=== PATIENT | male | born 1930 | race Caucasian/White ===

== ENCOUNTER → 2016-09-27 | Outpatient (CLI) | payer BC ==
[~2016-09-27] MED LIST: FINA5TAB PO; MELA1TAB3 PO; MULTCAP33 PO; SPIR25TA PO; TERA1CAP63 PO
[2016-09-27 11:04] LABS: BASO % 0.3 %; BASO ABS # 0.02 K/uL (0-0.2); COMPLETE YES; HEMATOCRIT 41.6 % (42-52); IG% 0.5 %; LYMPH % 14.6 %; LYMPH ABS # 0.96 K/uL (1.2-3.4); MEAN CELL VOLUME 90.8 fL (80-100); MEAN CORPUSCULAR HEMOGLOBIN 30.3 pg (25-34); MEAN CORPUSCULAR HGB CONC 33.4 g/dl (32-36); MEAN PLATELET VOLUME 9.1 fL (7.4-10.4); MONO % 11.4 %; NEUT % 70.2 %; PLATELET COUNT 253 K/uL (130-400); RED BLOOD COUNT 4.58 M/uL (4.7-6.1); WHITE BLOOD COUNT 6.59 K/uL (4.8-10.8)
[2016-09-27 11:13] LABS: ALT/SGPT 20 U/L (12-78)
[2016-09-27 11:18] LABS: ALKALINE PHOSPHATASE 61 U/L (45-117); AST/SGOT 12 U/L (15-37)
== END | disposition home or self-care (01) ==
LOC: C.LAB1850 09:52
PROVIDERS: ATTEND Internal Medicine Rheumatology
DX: E55.9 Vitamin D deficiency, unspecified (principal); R70.0 Elevated erythrocyte sedimentation rate; M65.88 Other synovitis and tenosynovitis, other site

== ENCOUNTER → 2016-12-06 | Outpatient (CLI) | payer BC ==
[2016-12-06 10:35] LABS: BASO % 0.5 %; BASO ABS # 0.03 K/uL (0-0.2); COMPLETE YES; EOS % 2.4 %; HEMATOCRIT 41.9 % (42-52); IG% 0.3 %; LYMPH % 13.5 %; LYMPH ABS # 0.89 K/uL (1.2-3.4); MEAN CELL VOLUME 92.9 fL (80-100); MEAN CORPUSCULAR HEMOGLOBIN 30.8 pg (25-34); MEAN CORPUSCULAR HGB CONC 33.2 g/dl (32-36); MEAN PLATELET VOLUME 9.2 fL (7.4-10.4); MONO % 8.5 %; NEUT % 74.8 %; PLATELET COUNT 251 K/uL (130-400); RED BLOOD COUNT 4.51 M/uL (4.7-6.1); WHITE BLOOD COUNT 6.61 K/uL (4.8-10.8)
== END | disposition home or self-care (01) ==
LOC: C.LAB1850 09:41
PROVIDERS: ATTEND Internal Medicine Rheumatology
DX: N40.1 Benign prostatic hyperplasia with lower urinary tract symptoms (principal); E55.9 Vitamin D deficiency, unspecified; M65.88 Other synovitis and tenosynovitis, other site

== ENCOUNTER → 2017-01-11 | Outpatient (CLI) | payer BC | END | disposition home or self-care (01) | LOC: C.LABFOXMH 08:55 | PROVIDERS: ATTEND Urology | DX: N40.1 Benign prostatic hyperplasia with lower urinary tract symptoms (principal) ==

== ENCOUNTER → 2017-03-15 | Outpatient (CLI) | payer BC ==
[2017-03-15 13:22] LABS: BASO % 0.3 %; BASO ABS # 0.02 K/uL (0-0.2); COMPLETE YES; EOS % 3.1 %; HEMATOCRIT 40.5 % (42-52); IG% 0.2 %; LYMPH % 12.3 %; LYMPH ABS # 0.72 K/uL (1.2-3.4); MEAN CELL VOLUME 92.5 fL (80-100); MEAN CORPUSCULAR HEMOGLOBIN 31.7 pg (25-34); MEAN CORPUSCULAR HGB CONC 34.3 g/dl (32-36); MEAN PLATELET VOLUME 9.6 fL (7.4-10.4); NEUT % 72.1 %; PLATELET COUNT 245 K/uL (130-400); RED BLOOD COUNT 4.38 M/uL (4.7-6.1); WHITE BLOOD COUNT 5.84 K/uL (4.8-10.8)
[2017-03-15 13:47] LABS: ALT/SGPT 17 U/L (12-78)
[2017-03-15 13:50] LABS: ALKALINE PHOSPHATASE 68 U/L (45-117); AST/SGOT 12 U/L (15-37)
== END | disposition home or self-care (01) ==
LOC: C.LAB1850 12:06
PROVIDERS: ATTEND Internal Medicine Rheumatology
DX: M15.4 Erosive (osteo)arthritis (principal); M65.88 Other synovitis and tenosynovitis, other site; Z79.899 Other long term (current) drug therapy

== ENCOUNTER → 2017-04-09 | Outpatient (CLI) | payer BC ==
[2017-04-09 12:58] LABS: ALT/SGPT 16 U/L (12-78); BLOOD UREA NITROGEN 16 mg/dl (7-18); BUN/CREATININE RATIO 14.4 (10-20); CALCIUM 8.4 mg/dl (8.5-10.1); CARBON DIOXIDE 25 mmol/L (21-32); CHLORIDE 107 mmol/L (98-107); CHOLESTEROL 122 mg/dl (0-200); GLUCOSE 76 mg/dl (70-99); POTASSIUM 4.2 mmol/L (3.5-5.1); SODIUM 139 mmol/L (136-145); TRIGLYCERIDES 58 mg/dl (0-150); VERY LOW DENSITY LIPOPROT CALC 12 mg/dl
[2017-04-09 13:01] LABS: ALKALINE PHOSPHATASE 63 U/L (45-117); AST/SGOT 11 U/L (15-37); CHOLESTEROL/HDL RATIO 2.7; HDL CHOLESTEROL 46 mg/dl; LDL CHOLESTEROL CALCULATED 64 mg/dl
== END | disposition home or self-care (01) ==
LOC: C.LABFOXMH 12:55
PROVIDERS: ATTEND Internal Medicine
DX: I10 Essential (primary) hypertension (principal); E78.00 Pure hypercholesterolemia, unspecified

== ENCOUNTER → 2017-07-03 | Outpatient (CLI) | payer BC ==
[~2017-07-03] MED LIST changes: +CELE1CAP30 PO; +CHOL20007 PO; +ESZO1TAB16 PO; +FLNIN/ NAE; +HYDR200T5 PO; +LEVA45AE INH; +LVQ750 PO; +MRP5; +OFLO0.3D4 OT; +PRAM0.5T13 PO; +PRENTAB26 PO; +SPIR25TA6 PO; +TRAM-10 PO
--- NOTE | 2017-07-03 12:53 | DIAGNOSTIC IMAGING REPORT ---
L-SPINE MIN 4 VIEWS ROUTINE CLINICAL HISTORY: 86 years-old Male presenting with low back pain, no history of trauma. TECHNIQUE: Frontal, bilateral oblique, lateral, and coned in lateral views of the lumbar spine were obtained. COMPARISON: CT from 2015. FINDINGS: Levocurvature of the lumbar spine centered at and L2-3. Otherwise lordosis is preserved. Severe multilevel degenerative changes with osteophytosis, disc height loss, and endplate sclerosis. Osseous neural foraminal narrowing suspected in the lower lumbar spine and multiple levels. Focal sclerosis in the anterior superior portion of the L2 vertebral body was not clearly present on prior CT and is indeterminate. No gross evidence of a compression deformity. Atherosclerosis. Numerous surgical clips project over the left lower quadrant. Total right hip arthroplasty. Suspected osteopenia. IMPRESSION: 1. Focal sclerosis in the anterior superior portion of the L2 vertebral body, indeterminate and somewhat suspicious for a blastic metastasis in the appropriate clinical setting. Alternatively, this could be degenerative related. This be better evaluated with contrast-enhanced MR. 2. Severe multilevel degenerative changes with osseous neural foraminal narrowing. 3. Suspected osteopenia. Electronically signed by: Yoshi Francois M.D. 07/03/2017 12:52 PM Dictated Date/Time: 07/03/2017 12:49 PM
== END | disposition home or self-care (01) ==
LOC: C.RAD 12:24
PROVIDERS: ATTEND Internal Medicine
DX: M47.896 Other spondylosis, lumbar region (principal); M48.061 Spinal stenosis, lumbar region without neurogenic claudication

== ENCOUNTER → 2017-07-04 | Outpatient (CLI) | payer BC ==
[~2017-07-04] MED LIST changes: -CELE1CAP30 PO; -CHOL20007 PO; -ESZO1TAB16 PO; -FLNIN/ NAE; -HYDR200T5 PO; -LEVA45AE INH; -LVQ750 PO; -MRP5; -OFLO0.3D4 OT; -PRAM0.5T13 PO; -PRENTAB26 PO; -SPIR25TA6 PO; -TRAM-10 PO
[2017-07-04 08:15] LABS: BLOOD UREA NITROGEN 18 mg/dl (7-18); BUN/CREATININE RATIO 15.4 (10-20); CALCIUM 8.5 mg/dl (8.5-10.1); CARBON DIOXIDE 27 mmol/L (21-32); CHLORIDE 109 mmol/L (98-107); CREATININE 1.19 mg/dl (0.60-1.40); GLUCOSE 85 mg/dl (70-99); SODIUM 141 mmol/L (136-145)
== END | disposition home or self-care (01) ==
LOC: C.LABFOXMH 07:50
PROVIDERS: ATTEND Internal Medicine
DX: I10 Essential (primary) hypertension (principal)

== ENCOUNTER → 2017-07-11 | Outpatient (CLI) | payer BC ==
[~2017-07-11] MED LIST changes: +CELE1CAP30 PO; +CHOL20007 PO; +ESZO1TAB16 PO; +FLNIN/ NAE; +HYDR200T5 PO; +LEVA45AE INH; +LVQ750 PO; +MRP5; +OFLO0.3D4 OT; +PRAM0.5T13 PO; +PRENTAB26 PO; +SPIR25TA6 PO; +TRAM-10 PO
[2017-07-11 15:31] LABS: HEMATOCRIT 40.3 % (42-52); HEMOGLOBIN 13.6 g/dL (14.0-18.0); MEAN CELL VOLUME 93.7 fL (80-100); MEAN CORPUSCULAR HEMOGLOBIN 31.6 pg (25-34); MEAN CORPUSCULAR HGB CONC 33.7 g/dl (32-36); MEAN PLATELET VOLUME 9.4 fL (7.4-10.4); PLATELET COUNT 281 K/uL (130-400); RED CELL DISTRIBUTION WIDTH SD 47.7 fL (36.4-46.3); WHITE BLOOD COUNT 7.19 K/uL (4.8-10.8)
[2017-07-11 15:39] LABS: INR 1.1 (0.9-1.1)
[2017-07-11 15:44] LABS: ALBUMIN 3.5 gm/dl (3.4-5.0); ALT/SGPT 27 U/L (12-78); BLOOD UREA NITROGEN 24 mg/dl (7-18); CALCIUM 8.4 mg/dl (8.5-10.1); CARBON DIOXIDE 24 mmol/L (21-32); CREATININE 1.28 mg/dl (0.60-1.40); GLUCOSE 167 mg/dl (70-99); POTASSIUM 4.5 mmol/L (3.5-5.1); SODIUM 138 mmol/L (136-145)
[2017-07-11 15:46] LABS: ALKALINE PHOSPHATASE 68 U/L (45-117); AST/SGOT 21 U/L (15-37); TOTAL PROTEIN 6.5 gm/dl (6.4-8.2)
== END | disposition home or self-care (01) ==
LOC: C.LABFOXMH 14:56
PROVIDERS: ATTEND Internal Medicine Hospice and Palliative Medicine
DX: M79.81 Nontraumatic hematoma of soft tissue (principal)

== ENCOUNTER → 2017-07-12 | Outpatient (CLI) | payer BC ==
[~2017-07-12] MED LIST changes: -CELE1CAP30 PO; -CHOL20007 PO; -ESZO1TAB16 PO; -FLNIN/ NAE; +GADAVIST IV PRN; -HYDR200T5 PO; -LEVA45AE INH; -LVQ750 PO; -MRP5; -OFLO0.3D4 OT; -PRAM0.5T13 PO; -PRENTAB26 PO; -SPIR25TA6 PO; -TRAM-10 PO
--- NOTE | 2017-07-12 11:44 | DIAGNOSTIC IMAGING REPORT ---
LUMBAR SPINE COMBINATION HISTORY: Pain BACK PAIN,SCLEROTIC LESION AT L2 TECHNIQUE: Multiplanar multisequence MRI of the lumbar spine was performed both before and after the intravenous administration of contrast. COMPARISON: Lumbar spine series 07/03/2017. Bone scan 05/08/2016. FINDINGS: For the purpose of the report the L5-S1 disc space will be located on axial image 23 of 26. Severe degenerative disc change throughout the entire lumbar region. No evidence for compression deformity. Age-related bone marrow in homogeneity. No significant bone marrow replacing process. The sclerosis present described at L2 appears to be a degenerative basis. No significant abnormal postcontrast enhancement. Instill note is made of a distention of the renal pelves bilaterally which appears to be chronic in this patient. L1-L2: Broad-based right central disc herniation. Moderate impact upon the right anterior aspect thecal sac. Mild osteophytic narrowing of the neuroforamina bilaterally. L2-L3: Moderate multifactorial narrowing of spinal canal. Broad-based disc herniation. Narrowing of the neuroforamina bilaterally considered moderate. L3-L4: Moderate to significant multifactorial spinal stenosis. Significant narrowing of the neuroforamina bilaterally. L4-L5: Severe multifactorial narrowing of spinal canal. Considerable hypertrophic change posterior elements and ligamentum flavum. Osteophytic narrowing of the neuroforamina bilaterally. L5-S1: Moderate multifactorial narrowing of the spinal canal. Mild osteophytic narrowing of the neuroforamina bilaterally. IMPRESSION: 1. Severe degenerative disc change throughout the entire lumbar region.. 2. Multilevel multifactorial narrowing of the spinal canal throughout all levels of the lumbar spine. 3. Moderate to rather significant narrowing of the neuroforamina bilaterally at virtually all levels. 4. No evidence for a metastatic process or abnormal postcontrast enhancement at L2 or at any additional level of the lumbar region. 5. The sclerosis of L2 previously described on routine imaging evaluation appears to relate to degenerative change The above report was generated using voice recognition software. It may contain grammatical, syntax or spelling errors. Electronically signed by: Paul Pinzon M.D. 07/12/2017 11:43 AM Dictated Date/Time: 07/12/2017 11:35 AM
== END | disposition home or self-care (01) ==
LOC: C.MRI 10:00
PROVIDERS: ATTEND Internal Medicine
DX: M54.5 Low back pain (principal); M89.9 Disorder of bone, unspecified; M51.36 Other intervertebral disc degeneration, lumbar region; M48.061 Spinal stenosis, lumbar region without neurogenic claudication

== ENCOUNTER → 2017-07-20 | Outpatient (CLI) | payer BC ==
[~2017-07-20] MED LIST changes: +CELE1CAP30 PO; +CHOL20007 PO; +ESZO1TAB16 PO; +FLNIN/ NAE; -GADAVIST IV PRN; +HYDR200T5 PO; +LEVA45AE INH; +LVQ750 PO; +MRP5; +OFLO0.3D4 OT; +PRAM0.5T13 PO; +PRENTAB26 PO; +SPIR25TA6 PO; +TRAM-10 PO
--- NOTE | 2017-07-20 13:41 | DIAGNOSTIC IMAGING REPORT ---
R HIP UNILATERAL 2 VIEWS HISTORY: 86 years-old Male PAIN S/P FALL TWO WEEKS AGO acute right hip pain status post recent fall COMPARISON: CT abdomen and pelvis 12/27/2014 TECHNIQUE: 2 views of the right hip FINDINGS: The bones appear mildly demineralized. Right hip arthroplasty noted in satisfactory alignment. No evidence of hardware complication, acute fracture or dislocation. No pelvic ring fracture identified. Probable phleboliths of the pelvis. Surgical clip projects over the right pelvis. Peripheral vascular disease. IMPRESSION: 1. Mildly demineralized appearance of the bones without acute fracture or dislocation. 2. Right hip arthroplasty noted without complication. 3. Peripheral vascular disease. The above report was generated using voice recognition software. It may contain grammatical, syntax or spelling errors. Electronically signed by: Valdez Huntley M.D. 07/20/2017 1:40 PM Dictated Date/Time: 07/20/2017 1:38 PM
== END | disposition home or self-care (01) ==
LOC: C.RAD 13:07
PROVIDERS: ATTEND Nurse Practitioner Family
DX: M25.551 Pain in right hip (principal); I73.9 Peripheral vascular disease, unspecified; W19.XXXA Unspecified fall, initial encounter; Z96.641 Presence of right artificial hip joint

== ENCOUNTER 2017-09-03 18:56 | Inpatient (IN) | payer BC, OTHER ==
[~2017-09-03] VITALS: Ht 172.7 cm; Wt 81.7 kg
[~2017-09-03 18:56] MED LIST changes: -CELE1CAP30 PO; -CHOL20007 PO; -ESZO1TAB16 PO; -FLNIN/ NAE; -HYDR200T5 PO; -LEVA45AE INH; -LVQ750 PO; -MRP5; -OFLO0.3D4 OT; -PRAM0.5T13 PO; -PRENTAB26 PO; -SPIR25TA6 PO; -TRAM-10 PO
[2017-09-03] MEDS ORDERED: SODIUM CHLORIDE 0.9% 250ML 250 ML IV STA (19:06)
[2017-09-03] MEDS ORDERED: SODIUM CHLORIDE 0.9% 1000ML 1,000 ML IV STA (19:06)
[2017-09-03] MEDS ORDERED: ALBUT/IPRATROP 3MG/0.5MG NEB 3 ML VIAL INH STA (19:06)
--- NOTE | 2017-09-03 19:15 | EMERGENCY ROOM VISIT NOTE ---
History Report prepared by Jessica: Alex Rojas Under the Supervision of: Dr. Wendy Perez M.D. First contact with patient: 18:58 Stated Complaint: WEAKNESS History of Present Illness The patient is an 86 year old male who presents to the Emergency Room with complaints of constant weakness over the past three days. The patient states he is from [facility]. He reports he later developed a non-productive cough and hip pain. The patient notes he has a history of a hip surgery, and Advil helped his hip pain. He states he did not know he had a fever, but he was febrile on arrival. He notes he did not eat all of his dinner because he had a full lunch. The patient states he did receive a flu shot this year. The patient reports he has a history of hypertension. He denies vomiting, diarrhea, a history of smoking, and a history of diabetes. Source of History: patient Onset: three days ago Position: other (global) Quality: other (weakness) Timing: constant Associated Symptoms: + fevers, + cough (non-productive), No vomiting, No diarrhea Note: Associated symptoms: hip pain that relieved with Advil, decreased appetite Review of Systems See HPI for pertinent positives & negatives. A total of 10 systems reviewed and were otherwise negative. Past Medical & Surgical Medical Problems: (1) Acute CHF (congestive heart failure) (2) Localized, primary osteoarthritis of the pelvic region and thigh Family History Patient reports no known family medical history. Social History Smoking Status: Never Smoker Drug Use: none Marital Status: Housing Status: other ([facility]) Occupation Status: retired Current/Historical Medications Scheduled Finasteride (Proscar), 5 MG PO QAM Hydroxychloroquine Sulfate (Plaquenil), 200 MG PO BIDM Melatonin-Pyridoxine (Melatonin), 3 MG PO HS Multiple Vitamins W/ Minerals (Preservision Areds), 1 CAP PO BID Multivit/Min/Iron/Fol Ac/Pren ( Vitamin), 1 TAB PO DAILY Pramipexole Dihydrochloride (Pramipexole Dihydrochlori), 0.5 MG PO DAILY Spironolactone (Aldactone), 25 MG PO BID Terazosin Hcl (Hytrin), 10 MG PO QAM Scheduled PRN Tramadol (Ultram), 50 MG PO Q6H PRN for Pain Allergies Coded Allergies: No Known Allergies (Unverified , 03/01/11) Physical Exam Vital Signs Date Time Temp Pulse Resp B/P (MAP) Pulse Ox O2 Delivery O2 Flow Rate FiO2 09/03/17 22:29 96 22 180/81 98 Room Air 09/03/17 20:58 76 22 123/51 94 Room Air 09/03/17 20:55 38.2 09/03/17 19:35 81 09/03/17 19:05 37.2 86 20 126/63 95 Room Air Physical Exam Vital signs reviewed. General: Well-appearing, elderly, 86 year old male, in no significant distress. Dry cough. HEENT: No scleral icterus, PERRLA, neck supple. Atraumatic. Cardiovascular: Regular rate and rhythm, no extra sounds. Pulmonary: Clear to auscultation bilaterally, normal work of breathing. Dry cough. Abdomen: Soft, nontender, nondistended, positive bowel sounds. Musculoskeletal: Atraumatic, no peripheral edema. Neurologic: Patient awake alert and oriented x 3 Skin: Warm, dry, no rash Medical Decision & Procedures ER Provider Diagnostic Interpretation: Radiology results as stated below per my review and radiologist interpretation: CHEST ONE VIEW PORTABLE CLINICAL HISTORY: cough, fever dyspnea COMPARISON STUDY: 07/06/2016 FINDINGS: Moderate cardiac megaly. Increased pulmonary vasculature. Diaphragms are smooth. IMPRESSION: Congestive heart failure The above report was generated using voice recognition software. It may contain grammatical, syntax or spelling errors. Electronically signed by: Paul Pinzon M.D. 09/03/2017 7:32 PM Dictated Date/Time: 09/03/2017 7:31 PM (CHEST) THORAX WITHOUT CT DOSE: 708.89 mGy.cm HISTORY: Cough. Fever. fever, PNA TECHNIQUE: Multiaxial CT images of the chest were performed without contrast. A dose lowering technique was utilized adhering to the principles of ALARA. COMPARISON: 12/27/2014 FINDINGS: Moderate cardiomegaly. Calcification coronary arterial vasculature. No significant pericardial effusion. Small left pleural effusion. Prominent pulmonary vasculature. Prominence of pulmonary arterial vessels suggesting a component of pulmonary arterial hypertension. Potential small superimposed parenchymal infiltrate left base. IMPRESSION: 1. Cardiomegaly with findings of mild/moderate congestive heart failure. 2. Small left effusion with a possible small superimposed infiltrate left base. 3. Findings suggestive of pulmonary arterial hypertension. The above report was generated using voice recognition software. It may contain grammatical, syntax or spelling errors. Electronically signed by: Paul Pinzon M.D. 09/03/2017 10:04 PM Dictated Date/Time: 09/03/2017 10:02 PM Laboratory Results Test 09/03/17 19:10 09/03/17 19:20 09/03/17 20:05 Influenza Type A (RT-PCR) Neg for Influ A (NEG) Influenza Type B (RT-PCR) Neg for Influ B (NEG) Total Bilirubin 0.7 mg/dl (0.2-1) Direct Bilirubin 0.2 mg/dl (0-0.2) Aspartate Amino Transf (AST/SGOT) 10 U/L (15-37) Alanine Aminotransferase (ALT/SGPT) 17 U/L (12-78) Alkaline Phosphatase 64 U/L (45-117) Total Creatine Kinase 70 U/L (39-308) Creatine Kinase MB 1.7 ng/ml (0.5-3.6) Creatine Kinase MB Ratio 2.4 (0-3.0) Total Protein 6.5 gm/dl (6.4-8.2) Albumin 3.1 gm/dl (3.4-5.0) Urine Color DK YELLOW Urine Appearance CLEAR (CLEAR) Urine pH 5.0 (4.5-7.5) Urine Specific [place] 1.025 (1.000-1.030) Urine Protein 1+ (NEG) Urine Glucose (UA) NEG (NEG) Urine Ketones TRACE (NEG) Urine Occult Blood NEG (NEG) Urine Nitrite NEG (NEG) Urine Bilirubin NEG (NEG) Urine Urobilinogen NEG (NEG) Urine Leukocyte Esterase NEG (NEG) Urine WBC (Auto) 1-5 /hpf (0-5) Urine RBC (Auto) 0-4 /hpf (0-4) Urine Hyaline Casts (Auto) 5-10 /lpf (0-5) Urine Epithelial Cells (Auto) 10-20 /lpf (0-5) Urine Bacteria (Auto) NEG (NEG) Laboratory results per my review. Medications Administered Medications (Trade) Dose Ordered Sig/Jeana Route Start Time Stop Time Status Last Admin Dose Admin Albuterol/ Ipratropium (Duoneb) 3 ml NOW STAT INH 09/03/17 19:06 2/19/18 19:08 DC 09/03/17 19:33 3 ML Sodium Chloride 250 ml @ 999 mls/hr Q16M STAT IV 09/03/17 19:06 09/03/17 19:21 DC 09/03/17 19:33 999 MLS/HR Sodium Chloride 1,000 ml @ 125 mls/hr Q8H STAT IV 09/03/17 19:06 09/04/17 01:29 DC 09/03/17 19:33 125 MLS/HR Furosemide (Lasix Inj) 40 mg NOW STAT IV 09/03/17 20:52 09/03/17 20:53 DC 09/03/17 20:59 40 MG Levofloxacin (Levaquin Tab) 750 mg NOW STAT PO 09/03/17 21:23 09/03/17 21:24 DC 09/03/17 21:58 750 MG Acetaminophen (Tylenol Tab) 650 mg NOW STAT PO 09/03/17 22:47 09/03/17 22:48 DC 09/03/17 22:58 650 MG ECG Per My Interpretation Indication: weakness Rate (beats per minute): 81 Rhythm: sinus rhythm Findings: 1st degree AV block, LAFB, PAC, RBBB, no acute ischemic change, other (QTc is 480) ED Course 1900: Past medical records reviewed. The patient was evaluated in room B12B. A complete history and physical examination was performed. 1905: Ordered Sodium Chloride 1000 ml @ 125 mls/hr IV, Sodium Chloride 250 ml @ 999 mls/hr IV, Duoneb 3ml INH 2051: Ordered Furosemide 40mg IV 2122: Ordered Levofloxacin 750mg PO 2126: I reevaluated the patient and discussed current exam findings. I informed him of the need for a CT scan. He accepted. 3: The patient failed his ambulatory trial. 7: Ordered Acetaminophen 650mg PO 2251: Upon reevaluation, the patient is resting comfortably. I discussed laboratory and radiographic results with him. He verbalized agreement of the treatment plan. The patient will be evaluated for further management and care. 7: I discussed the patient's case with Dr. Alcantar, [facility] Hospitalist. The patient will be evaluated for further management and care. Medical Decision DDx: Influenza, other viral illness, pneumonia, urinary tract infection, metabolic abnormality, medication effect, cellulitis, meningitis, intra-abdominal source. This patient was evaluated and appeared to be in some discomfort. Physical examination reveals increased work of breathing. The patient is found to be febrile. Influenza swab was obtained and is negative. Laboratory work reveals a normal white blood cell count. Chest x-ray is concerning for congestive heart failure. Given the patient's respiratory difficulties and fevers, a CT scan of the chest was performed and is concerning for a small infiltrate. Blood cultures were obtained and the patient was medicated with Levaquin 750 mg by mouth. He was given a nebulizer treatment and Lasix 40 mg IV. Patient was given Tylenol 650 mg by mouth. Patient requested to be discharged however his is concerned about his weakness and falling potential. Nursing staff performed and ambulatory trial which the patient failed. Given the above symptoms and inability to ambulate, he will be evaluated by the hospitalist service for further management. Patient is aware of plan and agrees. Medication Reconcilliation Current Medication List: was personally reviewed by me Blood Pressure Screening Patient's blood pressure: Elevated blood pressure Monitored by hospitalist. Consults Time Called: [id number] Consulting Physician: Dr. Alcantar, [facility] Hospitalist Returned Call: [phone] I discussed the patient's case with Dr. Alcantar, [facility] Hospitalist. The patient will be evaluated for further management and care. Impression Primary Impression: PNA (pneumonia) Additional Impressions: Fever Generalized weakness Ambulatory dysfunction Scribe Attestation The scribe's documentation has been prepared under my direction and personally reviewed by me in its entirety. I confirm that the note above accurately reflects all work, treatment, procedures, and medical decision making performed by me. Departure Information Dispostion Being Evaluated By Hospitalist Referrals Curtis Mar (PCP) Problem Qualifiers
--- NOTE | 2017-09-03 19:33 | DIAGNOSTIC IMAGING REPORT ---
CHEST ONE VIEW PORTABLE CLINICAL HISTORY: cough, fever dyspnea COMPARISON STUDY: 07/06/2016 FINDINGS: Moderate cardiac megaly. Increased pulmonary vasculature. Diaphragms are smooth. IMPRESSION: Congestive heart failure The above report was generated using voice recognition software. It may contain grammatical, syntax or spelling errors. Electronically signed by: Paul Pinzon M.D. 09/03/2017 7:32 PM Dictated Date/Time: 09/03/2017 7:31 PM
[2017-09-03 19:42] LABS: BASO % 0.5 %; BASO ABS # 0.04 K/uL (0-0.2); EOS % 0.4 %; EOS ABS # 0.03 K/uL (0-0.5); HEMATOCRIT 40.2 % (42-52); HEMOGLOBIN 13.9 g/dL (14.0-18.0); IG# 0.02 K/uL (0.00-0.02); LYMPH % 4.6 %; LYMPH ABS # 0.36 K/uL (1.2-3.4); MEAN CORPUSCULAR HEMOGLOBIN 31.4 pg (25-34); MEAN CORPUSCULAR HGB CONC 34.6 g/dl (32-36); MEAN PLATELET VOLUME 9.3 fL (7.4-10.4); MONO % 12.3 %; MONO ABS # 0.96 K/uL (0.11-0.59); NEUT % 81.9 %; PLATELET COUNT 188 K/uL (130-400); RED CELL DISTRIBUTION WIDTH CV 13.5 % (11.5-14.5); RED CELL DISTRIBUTION WIDTH SD 44.8 fL (36.4-46.3); WHITE BLOOD COUNT 7.81 K/uL (4.8-10.8)
[2017-09-03 19:55] LABS: ALBUMIN 3.1 gm/dl (3.4-5.0); CALCIUM 8.3 mg/dl (8.5-10.1); CREATININE 1.53 mg/dl (0.60-1.40); POTASSIUM 4.1 mmol/L (3.5-5.1)
[2017-09-03 20:00] LABS: CKMB 1.7 ng/ml (0.5-3.6); TOTAL PROTEIN 6.5 gm/dl (6.4-8.2)
[2017-09-03] MEDS ORDERED: TRAM-10 PO (20:05)
[2017-09-03] MEDS ORDERED: PRAM0.5T13 PO (20:08)
[2017-09-03] MEDS ORDERED: HYDR200T5 PO (20:09)
[2017-09-03] MEDS ORDERED: PRENTAB26 PO (20:10)
[2017-09-03 20:32] LABS: INFLUENZA A PCR Neg for Influ A (NEG); INFLUENZA B PCR Neg for Influ B (NEG)
[2017-09-03] MEDS ORDERED: FUROSEMIDE 40 MG/4 ML VIAL IV STA (20:52)
[2017-09-03] MEDS ORDERED: LEVOFLOXACIN 750 MG TAB PO STA (21:23)
--- NOTE | 2017-09-03 22:05 | DIAGNOSTIC IMAGING REPORT ---
(CHEST) THORAX WITHOUT CT DOSE: 708.89 mGy.cm HISTORY: Cough. Fever. fever, PNA TECHNIQUE: Multiaxial CT images of the chest were performed without contrast. A dose lowering technique was utilized adhering to the principles of ALARA. COMPARISON: 12/27/2014 FINDINGS: Moderate cardiomegaly. Calcification coronary arterial vasculature. No significant pericardial effusion. Small left pleural effusion. Prominent pulmonary vasculature. Prominence of pulmonary arterial vessels suggesting a component of pulmonary arterial hypertension. Potential small superimposed parenchymal infiltrate left base. IMPRESSION: 1. Cardiomegaly with findings of mild/moderate congestive heart failure. 2. Small left effusion with a possible small superimposed infiltrate left base. 3. Findings suggestive of pulmonary arterial hypertension. The above report was generated using voice recognition software. It may contain grammatical, syntax or spelling errors. Electronically signed by: Paul Pinzon M.D. 09/03/2017 10:04 PM Dictated Date/Time: 09/03/2017 10:02 PM
[2017-09-03] MEDS ORDERED: ACETAMINOPHEN 325 MG TAB PO STA (22:47)
--- NOTE | 2017-09-03 23:58 | History and Physical ---
History & Physical Date & Time of Service: Sep 03, 2017 at 23:57 Chief Complaint: Weakness Primary Care Physician: Curtis Mar History of Present Illness Source: patient, hospital records The patient is an 86-year-old male who presents to the emergency department with complaint of persistent generalized weakness gradually worsening over the past 3 days. He has a resident at [facility]. He has no other specific complaints other than some transient hip pain with a history of a distant hip replacement, that was relieved by Advil. He was noted to have a temperature upon arrival to the ED, but was unaware of that. 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 Social History Smoking Status: Never Smoker Smokeless Tobacco Use: No Alcohol Use: none Drug Use: none Marital Status: Housing status: lives with significant other, assisted living Occupational Status: retired Immunizations History of Influenza Vaccine: Yes History of Tetanus Vaccine?: Unknown History of Pneumococcal: Yes Pneumococcal Date: Jul 19, 2011 History of Hepatitis B Vaccine: No Multi-Drug Resistant Organisms History of MDRO: No Allergies Coded Allergies: No Known Allergies (Unverified , 03/01/11) Home Medications Scheduled Finasteride (Proscar), 5 MG PO QAM Hydroxychloroquine Sulfate (Plaquenil), 200 MG PO BIDM Melatonin-Pyridoxine (Melatonin), 3 MG PO HS Multiple Vitamins W/ Minerals (Preservision Areds), 1 CAP PO BID Multivit/Min/Iron/Fol Ac/Pren ( Vitamin), 1 TAB PO DAILY Pramipexole Dihydrochloride (Pramipexole Dihydrochlori), 0.5 MG PO DAILY Spironolactone (Aldactone), 25 MG PO BID Terazosin Hcl (Hytrin), 10 MG PO QAM Scheduled PRN Tramadol (Ultram), 50 MG PO Q6H PRN for Pain Review of Systems The patient denies chest pain, palpitations, shortness of breath, dyspnea on exertion, cough, lower extremity swelling, sore throat, fevers, chills, sweats, weight change, nausea, vomiting, diarrhea , constipation, abdominal pain, pelvic pain, blood in urine or stool, dysuria, urinary frequency or urgency, headache, memory loss, loss of consciousness, rash, abnormal bruising or bleeding, imbalance, focal weakness, numbness or tingling in arms or legs, generalized arthralgias or myalgias, back or neck pain, or night sweats. The review of systems is otherwise negative other than for that already noted above, and at least 10 systems have been reviewed. Physical Exam Vital Signs Date Time Temp Pulse Resp B/P (MAP) Pulse Ox O2 Delivery O2 Flow Rate FiO2 09/03/17 22:29 96 22 180/81 98 Room Air 09/03/17 20:58 76 22 123/51 94 Room Air 09/03/17 20:55 38.2 09/03/17 19:35 81 09/03/17 19:05 37.2 86 20 126/63 95 Room Air The patient is awake, alert and oriented 3, well developed and well nourished, normocephalic and atraumatic, lying in bed and in no acute distress. HEENT--PERRL, EOMI, mucous membranes and oropharynx dry. Neck--supple. No JVD. No bruits. Thyroid normal, trachea midline, no adenopathy. Heart--normal S1 and S2. No murmurs, rubs or gallops. Lungs--crackles at the bases bilaterally with left worse than right, no respiratory distress, no accessory muscle use. Abdomen--normal bowel sounds and soft. Nontender. Nondistended, no hernias or masses, no organomegaly. Extremities--no cyanosis or clubbing. Trace bilateral pretibial pitting edema. There are good distal pulses b/l. Dermatologic--normal skin turgor, normal color, no abnormal lymph nodes, no rash. Neurologic--cranial nerves II through XII grossly intact. Rheumatologic--normal range of motion. Psychiatric--normal affect. Diagnostics Laboratory Results Results Past 24 Hours Test 09/03/17 19:10 09/03/17 19:20 09/03/17 20:05 Range/Units Influenza Type A (RT-PCR) Neg for Influ A NEG Influenza Type B (RT-PCR) Neg for Influ B NEG White Blood Count 7.81 4.8-10.8 K/uL Red Blood Count 4.42 4.7-6.1 M/uL Hemoglobin 13.9 14.0-18.0 g/dL Hematocrit 40.2 42-52 % Mean Corpuscular Volume 91.0 80-100 fL Mean Corpuscular Hemoglobin 31.4 25-34 pg Mean Corpuscular Hemoglobin Concent 34.6 32-36 g/dl Platelet Count 188 130-400 K/uL Mean Platelet Volume 9.3 7.4-10.4 fL Neutrophils (%) (Auto) 81.9 % Lymphocytes (%) (Auto) 4.6 % Monocytes (%) (Auto) 12.3 % Eosinophils (%) (Auto) 0.4 % Basophils (%) (Auto) 0.5 % Neutrophils # (Auto) 6.40 1.4-6.5 K/uL Lymphocytes # (Auto) 0.36 1.2-3.4 K/uL Monocytes # (Auto) 0.96 0.11-0.59 K/uL Eosinophils # (Auto) 0.03 0-0.5 K/uL Basophils # (Auto) 0.04 0-0.2 K/uL RDW Standard Deviation 44.8 36.4-46.3 fL RDW Coefficient of Variation 13.5 11.5-14.5 % Immature Granulocyte % (Auto) 0.3 % Immature Granulocyte # (Auto) 0.02 0.00-0.02 K/uL Sodium Level 135 136-145 mmol/L Potassium Level 4.1 3.5-5.1 mmol/L Chloride Level 103 98-107 mmol/L Carbon Dioxide Level 23 21-32 mmol/L Anion Gap 9.0 3-11 mmol/L Blood Urea Nitrogen 27 7-18 mg/dl Creatinine 1.53 0.60-1.40 mg/dl Est Creatinine Clear Calc Drug Dose 38.2 ml/min Estimated GFR () 47.4 Estimated GFR (Non- 40.9 BUN/Creatinine Ratio 17.7 10-20 Random Glucose 114 70-99 mg/dl Calcium Level 8.3 8.5-10.1 mg/dl Total Bilirubin 0.7 0.2-1 mg/dl Direct Bilirubin 0.2 0-0.2 mg/dl Aspartate Amino Transf (AST/SGOT) 10 15-37 U/L Alanine Aminotransferase (ALT/SGPT) 17 12-78 U/L Alkaline Phosphatase 64 45-117 U/L Total Creatine Kinase 70 39-308 U/L Creatine Kinase MB 1.7 0.5-3.6 ng/ml Creatine Kinase MB Ratio 2.4 0-3.0 Total Protein 6.5 6.4-8.2 gm/dl Albumin 3.1 3.4-5.0 gm/dl Urine Color DK YELLOW Urine Appearance CLEAR CLEAR Urine pH 5.0 4.5-7.5 Urine Specific [place] 1.025 1.000-1.030 Urine Protein 1+ NEG Urine Glucose (UA) NEG NEG Urine Ketones TRACE NEG Urine Occult Blood NEG NEG Urine Nitrite NEG NEG Urine Bilirubin NEG NEG Urine Urobilinogen NEG NEG Urine Leukocyte Esterase NEG NEG Urine WBC (Auto) 1-5 0-5 /hpf Urine RBC (Auto) 0-4 0-4 /hpf Urine Hyaline Casts (Auto) 5-10 0-5 /lpf Urine Epithelial Cells (Auto) 10-20 0-5 /lpf Urine Bacteria (Auto) NEG NEG Microbiology Results 09/03/17 Blood Culture, Received Pending 09/03/17 Blood Culture, Received Pending Diagnostic Radiology Patient Name: IDANIA GUEVARA Unit Number: [id number] Dictated: 09/03/171930 Transcribed: 09/03/171930 MS Printed Date/Time: [~ rep prt dt]/[~ rep prt tm] [~ rep ct labl] - [~ rep ct ivnm] [facility] Radiology Department [place] [id number] Dictated: 09/03/171930 Transcribed: 09/03/171930 MS Printed Date/Time: [~ rep prt dt]/[~ rep prt tm] [~ rep ct labl] - [~ rep ct ivnm] CHEST ONE VIEW PORTABLE CLINICAL HISTORY: cough, fever dyspnea COMPARISON STUDY: 07/06/2016 FINDINGS: Moderate cardiac megaly. Increased pulmonary vasculature. Diaphragms are smooth. IMPRESSION: Congestive heart failure The above report was generated using voice recognition software. It may contain grammatical, syntax or spelling errors. Electronically signed by: Paul Pinzon M.D. 09/03/2017 7:32 PM Dictated Date/Time: 09/03/2017 7:31 PM The status of this report is Signed. Draft = Not yet reviewed or approved by Radiologist. Signed = Reviewed and approved by Radiologist. <AttendingPhy></AttendingPhy> <FamilyPhy>Elaine Tyler C.R.NRemington</FamilyPhy> <PrimaryPhy>Isabela [facility]</PrimaryPhy> <UnitNumber>[id number]</UnitNumber> < VisitNumber>[id number]</VisitNumber> <PatientName>IDANIA GUEVARA</PatientName> <DateOfBirth>1930</DateOfBirth> <Location>C.EDB</Location> <ServiceDate></ServiceDate> <MNE>ESINDI</MNE> <OrderingPhy>Wendy Perez M.D.</ OrderingPhy> <OrderingPhyMNE>f rep ord dr hurley</OrderingPhyMNE> <DictatingPhyMNE> f rep dict dr hurley</DictatingPhyMNE> <CCListMNE>f rep ct mne</CCListMNE> < AdmittingPhyMNE>f pt admit dr hurley</AdmittingPhyMNE> <AttendingPhyMNE>f pt attend dr hurley</AttendingPhyMNE> <ConsultingPhyMNE>f pt consult dr hurley</ConsultingPhyMNE> <FamilyPhyMNE>f pt fam dr hurley</FamilyPhyMNE> <OtherPhyMNE>f pt other dr hurley</OtherPhyMNE> < PrimaryPhyMNE>f pt prim care dr hurley</PrimaryPhyMNE> <ReferringPhyMNE>f pt referring dr hurley</ReferringPhyMNE> Patient Name: IDANIA GUEVARA Unit Number: [id number] Dictated: 09/03/172201 Transcribed: 09/03/172201 MS Printed Date/Time: [~ rep prt dt]/[~ rep prt tm] [~ rep ct labl] - [~ rep ct ivnm] [facility] [place] [address] Dictated: 09/03/172201 Transcribed: 09/03/172201 MS Printed Date/Time: [~ rep prt dt]/[~ rep prt tm] [~ rep ct labl] - [~ rep ct ivnm] [~ rep ct add3]] (CHEST) THORAX WITHOUT CT DOSE: 708.89 mGy.cm HISTORY: Cough. Fever. fever, PNA TECHNIQUE: Multiaxial CT images of the chest were performed without contrast. A dose lowering technique was utilized adhering to the principles of ALARA. COMPARISON: 12/27/2014 FINDINGS: Moderate cardiomegaly. Calcification coronary arterial vasculature. No significant pericardial effusion. Small left pleural effusion. Prominent pulmonary vasculature. Prominence of pulmonary arterial vessels suggesting a component of pulmonary arterial hypertension. Potential small superimposed parenchymal infiltrate left base. IMPRESSION: 1. Cardiomegaly with findings of mild/moderate congestive heart failure. 2. Small left effusion with a possible small superimposed infiltrate left base. 3. Findings suggestive of pulmonary arterial hypertension. The above report was generated using voice recognition software. It may contain grammatical, syntax or spelling errors. Electronically signed by: Paul Pinzon M.D. 09/03/2017 10:04 PM Dictated Date/Time: 09/03/2017 10:02 PM The status of this report is Signed. Draft = Not yet reviewed or approved by Radiologist. Signed = Reviewed and approved by Radiologist. <AttendingPhy></AttendingPhy> <FamilyPhy>Yamel Hussein MD</FamilyPhy> < PrimaryPhy>[facility]</PrimaryPhy> <UnitNumber>[id number]</UnitNumber> < VisitNumber>[id number]</VisitNumber> <PatientName>IDANIA GUEVARA</PatientName> <DateOfBirth>1930</DateOfBirth> <Location>C.EDB</Location> <ServiceDate></ServiceDate> <MNE>ESINDI</MNE> <OrderingPhy>Wendy Perez M.D.</ OrderingPhy> <OrderingPhyMNE>f rep ord dr hurley</OrderingPhyMNE> <DictatingPhyMNE> f rep dict dr hurley</DictatingPhyMNE> <CCListMNE>f rep ct mne</CCListMNE> < AdmittingPhyMNE>f pt admit dr hurley</AdmittingPhyMNE> <AttendingPhyMNE>f pt attend dr hurley</AttendingPhyMNE> <ConsultingPhyMNE>f pt consult dr hurley</ConsultingPhyMNE> <FamilyPhyMNE>f pt fam dr hurley</FamilyPhyMNE> <OtherPhyMNE>f pt other dr hurley</OtherPhyMNE> < PrimaryPhyMNE>f pt prim care dr hurley</PrimaryPhyMNE> <ReferringPhyMNE>f pt referring dr hurley</ReferringPhyMNE> EKG EKG shows normal sinus rhythm at 81 bpm, first-degree heart block, right bundle branch block, left anterior fascicular block, no acute ST-T changes. Impression Assessment and Plan Acute CHF-- The patient will be admitted to telemetry for serial cardiac enzymes, serial EKG's, cardiac rhythm monitoring and a 2-D echocardiogram with Dopplers. Patient received Lasix 40 mg IV in the ED. Lasix 40 mg IV every morning Continue spironolactone 25 mg by mouth twice a day Serial CBC with differential, BMP and magnesium level. Follow kidney function closely Left lower lobe pneumonia and effusion-- Ceftriaxone 1 g IV daily Levofloxacin 500 mg IV every 24 hours Solu-Medrol 40 mg IV every 8 hours Guaifenesin extended release 600 mg by mouth twice a day Xopenex/Atovent nebs q6hwa and q2h prn Nasal cannula 2 L of oxygen titrating to keep pulse ox greater than or equal to 92%. Sputum Gram stain and culture. Acute kidney injury-- Follow daily BMP and magnesium levels BPH-- Continue finasteride and terazosin RLS-- Continue pramipexole Arthritis-- Continue Plaquenil Level of Care Telemetry Advanced Directives Existing Advance Directive: No Existing Living Will: No Existing Power of Window Shade Cutter: No Resuscitation Status FULL RESUSCITATION VTE Prophylaxis VTE Risk Assessment Done? Y/N: Yes Risk Level: Moderate Given or contraindicated: Unfractionated heparin SQ Social Service Consult Lives in Personal Care
[2017-09-04] VITALS (20 sets, daily range): BP systolic 117–163; BP diastolic 51–80; PULSE 64–106; TEMP 36.5–39.5; O2SAT 93–100; Ht 172.7 cm; Wt 81.7 kg
[2017-09-04] MEDS ORDERED: ALUMINUM/MAGNESIUM/SIMETH (MAALOX MAX) 30 ML UDC PO PRN (00:15)
[2017-09-04] MEDS ORDERED: MAGNESIUM HYDROXIDE SUSP 30 ML UDC PO PRN (00:15)
[2017-09-04] MEDS ORDERED: POLYETHYLENE (MIRALAX) 17 GM PACK PO PRN (00:15)
[2017-09-04] MEDS ORDERED: NITROGLYCERIN 0.4 MG SL PER TAB CHARGE SL PRN (00:15)
[2017-09-04] MEDS ORDERED: METHYLPREDNISOLONE IV 40 MG in SYRINGE 0 ML IV SCH (01:00)
[2017-09-04] MEDS ORDERED: IPRATROPIUM BROMIDE NEB SOLN 0.02% 2.5 ML VIAL INH PRN (01:15)
[2017-09-04] MEDS ORDERED: LEVALBUTEROL 1.25MG/0.5ML NEB INH PRN (01:15)
[2017-09-04] MEDS: LEVALBUTEROL 1.25MG/0.5ML NEB INH SCH ×4 (01:40→20:02)
[2017-09-04] MEDS: IPRATROPIUM BROMIDE NEB SOLN 0.02% 2.5 ML VIAL INH SCH ×4 (01:40→20:01)
[2017-09-04] MEDS ORDERED: LEVOFLOXACIN CONSULT ACTIVE PRN (01:45)
[2017-09-04] MEDS ORDERED: CEFTRIAXONE SOD INJ 1 GM in DEXTROSE 5% ADD-VANTAGE 50ML 50 ML IV SCH (02:00)
[2017-09-04] MEDS ORDERED: LEVALBUTEROL/IPRATROPIUM NEB INH SCH (03:00)
[2017-09-04 06:22] LABS: INR 1.3 (0.9-1.1)
[2017-09-04] MEDS: FUROSEMIDE INJ 40 MG in SYRINGE 0 ML IV SCH (08:40)
[2017-09-04] MEDS: PRESERVISION AREDS~ORDER AWAITING ACTION SCH ×2 (08:41→15:38)
[2017-09-04] MEDS: HYDROXYCHLOROQUINE SULFATE 200 MG TAB PO SCH ×2 (08:41→17:33)
[2017-09-04] MEDS: PRENATAL VITAMIN TAB PO SCH (08:41)
[2017-09-04] MEDS: GUAIFENESIN 600 MG TABCR PO SCH ×2 (08:41→21:23)
[2017-09-04] MEDS: SPIRONOLACTONE 25 MG TAB PO SCH ×2 (08:41→17:33)
[2017-09-04] MEDS: PRAMIPEXOLE DIHYDROCHLORIDE 0.5 MG TAB PO SCH (08:41)
[2017-09-04] MEDS: FINASTERIDE 5 MG TAB PO SCH (08:42)
[2017-09-04 08:44] LABS: BASO % 0.1 %; BASO ABS # 0.01 K/uL (0-0.2); HEMATOCRIT 41.3 % (42-52); HEMOGLOBIN 14.1 g/dL (14.0-18.0); IG# 0.03 K/uL (0.00-0.02); LYMPH % 2.5 %; LYMPH ABS # 0.21 K/uL (1.2-3.4); MEAN CELL VOLUME 90.2 fL (80-100); MEAN CORPUSCULAR HEMOGLOBIN 30.8 pg (25-34); MEAN CORPUSCULAR HGB CONC 34.1 g/dl (32-36); MEAN PLATELET VOLUME 9.2 fL (7.4-10.4); MONO % 7.1 %; NEUT % 89.9 %; NEUT ABS # 7.61 K/uL (1.4-6.5); PLATELET COUNT 193 K/uL (130-400); RED CELL DISTRIBUTION WIDTH CV 13.3 % (11.5-14.5); RED CELL DISTRIBUTION WIDTH SD 43.7 fL (36.4-46.3); WHITE BLOOD COUNT 8.46 K/uL (4.8-10.8)
[2017-09-04] MEDS: ENOXAPARIN 30 MG/0.3 ML SYR SC SCH (08:45)
[2017-09-04 08:55] LABS: CALCIUM 8.4 mg/dl (8.5-10.1); CREATININE 1.23 mg/dl (0.60-1.40); POTASSIUM 3.7 mmol/L (3.5-5.1)
[2017-09-04] MEDS: ONDANSETRON INJ 2 MG/ML 2 ML VIAL IV PRN (11:08)
--- NOTE | 2017-09-04 15:59 | Progress Note ---
Subjective Date of Service: Sep 04, 2017. Subjective Pt evaluation today including: conversation w/ patient, physical exam, lab review, review of inpatient medication list Pain: no pain PO Intake: adequate Voiding: no voiding problems patient feeling better, more strength in legs and arms, breathing is markedly improved mild cough, minimal sputum production diuresed 760cc thus far reviewed labs, Cr is 1.23, WBC normal, flu negative Problem List Medical Problems: (1) Ambulatory dysfunction Status: Acute (2) Fever Status: Acute (3) Generalized weakness Status: Acute (4) PNA (pneumonia) Status: Acute Review of Systems Constitutional: + weakness, + fatigue Respiratory: + cough, + shortness of breath, + dyspnea on exertion Neurologic: + weakness, + balance problems All Other Systems: Reviewed and Negative Medications Current Inpatient Medications Medications (Trade) Dose Ordered Sig/Jeana Route Start Time Stop Time Status Last Admin Dose Admin Enoxaparin Sodium (Lovenox Inj) 30 mg Q24H SC 09/04/17 09:00 10/04/17 08:59 09/04/17 08:45 30 MG Acetaminophen (Tylenol Tab) 650 mg Q4H PRN PO 09/04/17 00:15 10/04/17 00:14 Al Hydrox/Mg Hydrox/Simethicone (Maalox Max Susp) 15 ml Q4H PRN PO 09/04/17 00:15 10/04/17 00:14 Magnesium Hydroxide (Milk Of Magnesia Susp) 30 ml Q12H PRN PO 09/04/17 00:15 10/04/17 00:14 Nitroglycerin (Nitrostat Tab) 0.4 mg UD PRN SL 09/04/17 00:15 10/04/17 00:14 Polyethylene (Miralax Powder Packet) 17 gm DAILY PRN PO 09/04/17 00:15 10/04/17 00:14 Finasteride (Proscar Tab) 5 mg QAM PO 09/04/17 09:00 10/04/17 08:59 09/04/17 08:42 5 MG Hydroxychloroquine Sulfate (Plaquenil Tab) 200 mg BIDM PO 09/04/17 08:00 10/04/17 07:59 09/04/17 08:41 200 MG Prenat Multivit/ Leonore/Iron/Folic Ac ( Vitamin Tab) 1 tab DAILY PO 09/04/17 09:00 10/04/17 08:59 09/04/17 08:41 1 TAB Pramipexole Dihydrochloride (miraPEX TAB) 0.5 mg DAILY PO 09/04/17 09:00 10/04/17 08:59 09/04/17 08:41 0.5 MG Spironolactone (Aldactone Tab) 25 mg BID17 PO 09/04/17 09:00 10/04/17 08:59 09/04/17 08:41 25 MG Terazosin HCl (Hytrin Cap) 10 mg QAM PO 09/04/17 09:00 10/04/17 08:59 09/04/17 08:41 10 MG Tramadol HCl (Ultram Tab) 50 mg Q6H PRN PO 09/04/17 00:15 10/04/17 00:14 Miscellaneous Information (Order Awaiting Action) 1 ea QS N/A 09/04/17 08:00 10/04/17 07:59 Guaifenesin (Mucinex Contr Rel Tab) 600 mg Q12 PO 09/04/17 09:00 10/04/17 08:59 09/04/17 08:41 600 MG Ondansetron HCl (Zofran Inj) 4 mg Q6H PRN IV 09/04/17 00:15 10/04/17 00:14 09/04/17 11:08 4 MG Furosemide 40 mg/ Syringe 4 ml @ 4 mls/min QAM IV 09/04/17 09:00 10/04/17 08:59 09/04/17 08:40 4 MLS/MIN Ipratropium Plaquemine (Atrovent 0.02% 0.5MG/2.5ML Neb) 0.5 mg Q6R INH 09/04/17 03:00 10/04/17 02:59 09/04/17 14:27 0.5 MG Levalbuterol (Xopenex 1.25MG/ 0.5ML Neb) 1.25 mg Q6R INH 09/04/17 03:00 10/04/17 02:59 09/04/17 14:27 1.25 MG Ipratropium Plaquemine (Atrovent 0.02% 0.5MG/2.5ML Neb) 0.5 mg Q2H PRN INH 09/04/17 01:15 3/22/18 01:14 Levalbuterol (Xopenex 1.25MG/ 0.5ML Neb) 1.25 mg Q2H PRN INH 09/04/17 01:15 10/04/17 01:14 Levofloxacin (Consult) 1 ea UD PRN N/A 09/04/17 01:45 10/04/17 01:44 Levofloxacin (Levaquin Tab) 750 mg QD@2100 PO 09/04/17 21:00 09/09/17 21:01 Objective Vital Signs Date Time Temp Pulse Resp B/P (MAP) Pulse Ox O2 Delivery O2 Flow Rate FiO2 09/04/17 14:27 84 16 96 Room Air 09/04/17 12:00 96 Room Air 09/04/17 11:36 37.0 90 18 152/51 (84) 96 Room Air 09/04/17 10:18 36.5 87 18 117/68 (84) 97 Room Air 09/04/17 08:00 96 Room Air 09/04/17 07:35 36.9 68 18 163/79 (107) 96 Room Air 09/04/17 07:11 64 16 97 Room Air 09/04/17 04:00 Room Air 09/04/17 03:31 36.6 67 20 150/71 (97) 94 Room Air 09/04/17 01:15 37.0 64 20 120/53 Room Air 09/04/17 01:00 36.6 70 16 163/72 (102) 93 Room Air 09/04/17 00:26 37.0 92 20 120/53 95 09/03/17 22:29 96 22 180/81 98 Room Air 09/03/17 20:58 76 22 123/51 94 Room Air 09/03/17 20:55 38.2 09/03/17 19:35 81 09/03/17 19:05 37.2 86 20 126/63 95 Room Air Physical Exam General Appearance: WD/WN, no apparent distress Eyes: normal inspection, EOMI, sclerae normal ENT: normal ENT inspection, hearing grossly normal, pharynx normal Neck: supple, no adenopathy, no JVD, trachea midline Respiratory/Chest: chest non-tender, no respiratory distress, no accessory muscle use, + decreased breath sounds, + rales (bases) Cardiovascular: regular rate, rhythm, no edema, no gallop, no JVD, no murmur Abdomen: normal bowel sounds, non tender, soft, no organomegaly Extremities: normal range of motion, non-tender, normal inspection, no pedal edema, no calf tenderness, pelvis stable Neurologic/Psychiatric: supervisor fusing room II-XII nml as tested, alert, normal mood/affect, oriented x 3, + motor weakness (4 out of 5 strength, generalized) Skin: normal color, warm/dry, no rash Laboratory Results Last 24 Hours Test 09/03/17 19:10 09/03/17 19:20 09/03/17 20:05 09/04/17 05:32 Influenza Type A (RT-PCR) Neg for Influ A Influenza Type B (RT-PCR) Neg for Influ B White Blood Count 7.81 K/uL 8.46 K/uL Red Blood Count 4.42 M/uL 4.58 M/uL Hemoglobin 13.9 g/dL 14.1 g/dL Hematocrit 40.2 % 41.3 % Mean Corpuscular Volume 91.0 fL 90.2 fL Mean Corpuscular Hemoglobin 31.4 pg 30.8 pg Mean Corpuscular Hemoglobin Concent 34.6 g/dl 34.1 g/dl Platelet Count 188 K/uL 193 K/uL Mean Platelet Volume 9.3 fL 9.2 fL Neutrophils (%) (Auto) 81.9 % 89.9 % Lymphocytes (%) (Auto) 4.6 % 2.5 % Monocytes (%) (Auto) 12.3 % 7.1 % Eosinophils (%) (Auto) 0.4 % 0.0 % Basophils (%) (Auto) 0.5 % 0.1 % Neutrophils # (Auto) 6.40 K/uL 7.61 K/uL Lymphocytes # (Auto) 0.36 K/uL 0.21 K/uL Monocytes # (Auto) 0.96 K/uL 0.60 K/uL Eosinophils # (Auto) 0.03 K/uL 0.00 K/uL Basophils # (Auto) 0.04 K/uL 0.01 K/uL RDW Standard Deviation 44.8 fL 43.7 fL RDW Coefficient of Variation 13.5 % 13.3 % Immature Granulocyte % (Auto) 0.3 % 0.4 % Immature Granulocyte # (Auto) 0.02 K/uL 0.03 K/uL Sodium Level 135 mmol/L 134 mmol/L Potassium Level 4.1 mmol/L 3.7 mmol/L Chloride Level 103 mmol/L 101 mmol/L Carbon Dioxide Level 23 mmol/L 24 mmol/L Anion Gap 9.0 mmol/L 9.0 mmol/L Blood Urea Nitrogen 27 mg/dl 22 mg/dl Creatinine 1.53 mg/dl 1.23 mg/dl Est Creatinine Clear Calc Drug Dose 38.2 ml/min 47.5 ml/min Estimated GFR () 47.4 61.7 Estimated GFR (Non- 40.9 53.2 BUN/Creatinine Ratio 17.7 17.9 Random Glucose 114 mg/dl 124 mg/dl Calcium Level 8.3 mg/dl 8.4 mg/dl Total Bilirubin 0.7 mg/dl Direct Bilirubin 0.2 mg/dl Aspartate Amino Transf (AST/SGOT) 10 U/L Alanine Aminotransferase (ALT/SGPT) 17 U/L Alkaline Phosphatase 64 U/L Total Creatine Kinase 70 U/L Creatine Kinase MB 1.7 ng/ml Creatine Kinase MB Ratio 2.4 Total Protein 6.5 gm/dl Albumin 3.1 gm/dl Urine Color DK YELLOW Urine Appearance CLEAR Urine pH 5.0 Urine Specific [place] 1.025 Urine Protein 1+ Urine Glucose (UA) NEG Urine Ketones TRACE Urine Occult Blood NEG Urine Nitrite NEG Urine Bilirubin NEG Urine Urobilinogen NEG Urine Leukocyte Esterase NEG Urine WBC (Auto) 1-5 /hpf Urine RBC (Auto) 0-4 /hpf Urine Hyaline Casts (Auto) 5-10 /lpf Urine Epithelial Cells (Auto) 10-20 /lpf Urine Bacteria (Auto) NEG Prothrombin Time 13.8 SECONDS Prothromb Time International Ratio 1.3 Assessment and Plan Acute on chronic diastolic heart failure causing dyspnea improving, diuresed 760cc, breathing better, less edema in legs will give another dose of Lasix 40mg IV tomorrow and follow response Cr is 1.23, stable follow up echo results Left lower lobe pneumonia fever on admission and subtle finding on CXR taper to just Levaquin PO to limit fluid intake follow CBC minimal cough flu negative Generalized weakness, ambulatory dysfunction improving, ask for PT/OT evaluation lives at [facility] ELVIS: resolved, Cr is 1.23 today BPH-- Continue finasteride and terazosin RLS-- Continue pramipexole Arthritis-- Continue Plaquenil
[2017-09-04] MEDS: ACETAMINOPHEN 325 MG TAB PO PRN (18:07)
[2017-09-04] MEDS ORDERED: COUGH DROP (SUGAR FREE) LOZ 24 LOZ/1 BOX LOZ PRN (19:00)
[2017-09-04] MEDS ORDERED: NON-FORMULARY MEDICATION (Melatonin-Pyridoxine (Melatonin) 3 MG) PO SCH (21:00)
[2017-09-04] MEDS ORDERED: LEVOFLOXACIN 750 MG TAB PO SCH (21:00)
[2017-09-04] MEDS: TRAMADOL HCL 50 MG TAB PO PRN (21:25)
[2017-09-05] VITALS (11 sets, daily range): BP systolic 99–145; BP diastolic 49–101; PULSE 70–93; TEMP 36.5–37.8; O2SAT 91–99
[2017-09-05] MEDS: IPRATROPIUM BROMIDE NEB SOLN 0.02% 2.5 ML VIAL INH SCH ×4 (01:48→20:09)
[2017-09-05] MEDS: LEVALBUTEROL 1.25MG/0.5ML NEB INH SCH ×4 (01:48→20:09)
[2017-09-05 05:52] LABS: BASO % 0.2 %; BASO ABS # 0.02 K/uL (0-0.2); HEMATOCRIT 38.1 % (42-52); HEMOGLOBIN 13.8 g/dL (14.0-18.0); IG# 0.02 K/uL (0.00-0.02); LYMPH % 2.6 %; LYMPH ABS # 0.22 K/uL (1.2-3.4); MEAN CELL VOLUME 88.2 fL (80-100); MEAN CORPUSCULAR HEMOGLOBIN 31.9 pg (25-34); MEAN CORPUSCULAR HGB CONC 36.2 g/dl (32-36); MEAN PLATELET VOLUME 9.1 fL (7.4-10.4); MONO % 12.1 %; MONO ABS # 1.03 K/uL (0.11-0.59); NEUT % 84.9 %; NEUT ABS # 7.22 K/uL (1.4-6.5); PLATELET COUNT 168 K/uL (130-400); RED CELL DISTRIBUTION WIDTH CV 13.4 % (11.5-14.5); RED CELL DISTRIBUTION WIDTH SD 43.1 fL (36.4-46.3); WHITE BLOOD COUNT 8.51 K/uL (4.8-10.8)
[2017-09-05] MEDS: ACETAMINOPHEN 325 MG TAB PO PRN ×2 (06:12→18:00)
[2017-09-05 06:23] LABS: CREATININE 1.49 mg/dl (0.60-1.40); POTASSIUM 3.5 mmol/L (3.5-5.1)
[2017-09-05] MEDS: PRESERVISION AREDS~ORDER AWAITING ACTION SCH ×4 (08:00→23:40)
[2017-09-05] MEDS: PRENATAL VITAMIN TAB PO SCH (08:18)
[2017-09-05] MEDS: ENOXAPARIN 30 MG/0.3 ML SYR SC SCH (08:18)
[2017-09-05] MEDS: GUAIFENESIN 600 MG TABCR PO SCH ×2 (08:18→20:19)
[2017-09-05] MEDS: FINASTERIDE 5 MG TAB PO SCH (08:18)
[2017-09-05] MEDS: HYDROXYCHLOROQUINE SULFATE 200 MG TAB PO SCH ×2 (08:19→17:10)
[2017-09-05] MEDS: SPIRONOLACTONE 25 MG TAB PO SCH ×2 (08:19→17:10)
[2017-09-05] MEDS: FUROSEMIDE INJ 40 MG in SYRINGE 0 ML IV SCH (08:19)
[2017-09-05] MEDS: PRAMIPEXOLE DIHYDROCHLORIDE 0.5 MG TAB PO SCH (08:19)
[2017-09-05 11:00] LABS: INFLUENZA A PCR Neg for Influ A (NEG); INFLUENZA B PCR Neg for Influ B (NEG)
[2017-09-05] MEDS: ONDANSETRON INJ 2 MG/ML 2 ML VIAL IV PRN (12:00)
--- NOTE | 2017-09-05 13:34 | Progress Note ---
Subjective Date of Service: Sep 05, 2017. Subjective Pt evaluation today including: conversation w/ patient, conversation w/ family (), physical exam, lab review, review of studies, review of inpatient medication list Pain: no pain PO Intake: adequate Voiding: no voiding problems patient still with fevers last night despite Levaquin repeat flu PCR negative today patient still feels weakness in general, upper and lower extremities updated at the bedside labs reviewed, Cr up to 1.4 but that is baseline, WBC normal again today Problem List Medical Problems: (1) Ambulatory dysfunction Status: Acute (2) Fever Status: Acute (3) Generalized weakness Status: Acute (4) PNA (pneumonia) Status: Acute Review of Systems Constitutional: + fever, + chills, + sweats, + weakness, + fatigue Neurologic: + weakness, + balance problems All Other Systems: Reviewed and Negative Medications Current Inpatient Medications Medications (Trade) Dose Ordered Sig/Jeana Route Start Time Stop Time Status Last Admin Dose Admin Enoxaparin Sodium (Lovenox Inj) 30 mg Q24H SC 09/04/17 09:00 10/04/17 08:59 09/05/17 08:18 30 MG Acetaminophen (Tylenol Tab) 650 mg Q4H PRN PO 09/04/17 00:15 10/04/17 00:14 09/05/17 06:12 650 MG Al Hydrox/Mg Hydrox/Simethicone (Maalox Max Susp) 15 ml Q4H PRN PO 09/04/17 00:15 10/04/17 00:14 Magnesium Hydroxide (Milk Of Magnesia Susp) 30 ml Q12H PRN PO 09/04/17 00:15 10/04/17 00:14 Nitroglycerin (Nitrostat Tab) 0.4 mg UD PRN SL 09/04/17 00:15 10/04/17 00:14 Polyethylene (Miralax Powder Packet) 17 gm DAILY PRN PO 09/04/17 00:15 10/04/17 00:14 Finasteride (Proscar Tab) 5 mg QAM PO 09/04/17 09:00 10/04/17 08:59 09/05/17 08:18 5 MG Hydroxychloroquine Sulfate (Plaquenil Tab) 200 mg BIDM PO 09/04/17 08:00 10/04/17 07:59 09/05/17 08:19 200 MG Prenat Multivit/ Environmental Sampling Technician/Iron/Folic Ac ( Vitamin Tab) 1 tab DAILY PO 09/04/17 09:00 10/04/17 08:59 09/05/17 08:18 1 TAB Pramipexole Dihydrochloride (miraPEX TAB) 0.5 mg DAILY PO 09/04/17 09:00 10/04/17 08:59 09/05/17 08:19 0.5 MG Spironolactone (Aldactone Tab) 25 mg BID17 PO 09/04/17 09:00 10/04/17 08:59 09/05/17 08:19 25 MG Terazosin HCl (Hytrin Cap) 10 mg QAM PO 09/04/17 09:00 10/04/17 08:59 09/05/17 08:19 10 MG Tramadol HCl (Ultram Tab) 50 mg Q6H PRN PO 09/04/17 00:15 10/04/17 00:14 09/04/17 21:25 50 MG Miscellaneous Information (Order Awaiting Action) 1 ea QS N/A 09/04/17 08:00 10/04/17 07:59 Guaifenesin (Mucinex Contr Rel Tab) 600 mg Q12 PO 09/04/17 09:00 10/04/17 08:59 09/05/17 08:18 600 MG Ondansetron HCl (Zofran Inj) 4 mg Q6H PRN IV 09/04/17 00:15 10/04/17 00:14 09/05/17 12:00 4 MG Furosemide 40 mg/ Syringe 4 ml @ 4 mls/min QAM IV 09/04/17 09:00 10/04/17 08:59 09/05/17 08:19 4 MLS/MIN Ipratropium [place] (Atrovent 0.02% 0.5MG/2.5ML Neb) 0.5 mg Q6R INH 09/04/17 03:00 10/04/17 02:59 09/05/17 07:50 0.5 MG Levalbuterol (Xopenex 1.25MG/ 0.5ML Neb) 1.25 mg Q6R INH 09/04/17 03:00 10/04/17 02:59 09/05/17 07:50 1.25 MG Ipratropium [place] (Atrovent 0.02% 0.5MG/2.5ML Neb) 0.5 mg Q2H PRN INH 09/04/17 01:15 10/04/17 01:14 Levalbuterol (Xopenex 1.25MG/ 0.5ML Neb) 1.25 mg Q2H PRN INH 09/04/17 01:15 10/04/17 01:14 Levofloxacin (Consult) 1 ea UD PRN N/A 09/04/17 01:45 10/04/17 01:44 Menthol (Nice Kourtney) 1 kourtney PRN PRN KOURTNEY 09/04/17 19:00 10/04/17 18:59 Levofloxacin (Levaquin Tab) 750 mg Q2D@2100 PO 09/06/17 21:00 09/09/17 21:01 Objective Vital Signs Date Time Temp Pulse Resp B/P (MAP) Pulse Ox O2 Delivery O2 Flow Rate FiO2 09/05/17 11:49 37.0 70 18 145/101 (116) 98 Room Air 09/05/17 08:45 Room Air 09/05/17 07:45 89 16 92 Room Air 09/05/17 04:00 36.5 93 18 145/75 (98) 99 Room Air 09/05/17 04:00 Room Air 09/05/17 01:49 83 16 95 Room Air 09/04/17 23:59 36.9 93 18 139/72 (94) 96 Room Air 09/04/17 23:59 Room Air 09/04/17 21:29 38.0 83 157/70 (99) 95 Room Air 09/04/17 20:02 88 16 93 Room Air 09/04/17 20:00 96 Room Air 09/04/17 19:25 39.2 87 22 151/72 (98) 93 Room Air 09/04/17 18:52 39.4 09/04/17 18:06 39.5 09/04/17 16:04 36.7 106 22 146/69 (94) 94 Room Air 09/04/17 16:00 96 Room Air 09/04/17 14:27 84 16 96 Room Air Physical Exam General Appearance: WD/WN, no apparent distress Eyes: normal inspection, EOMI, sclerae normal ENT: normal ENT inspection, hearing grossly normal, pharynx normal Neck: supple, no adenopathy, no JVD, trachea midline Respiratory/Chest: chest non-tender, lungs clear, normal breath sounds, no respiratory distress, no accessory muscle use Cardiovascular: regular rate, rhythm, no edema, no gallop, no JVD, no murmur Abdomen: normal bowel sounds, non tender, soft, no organomegaly Extremities: normal range of motion, non-tender, normal inspection, no pedal edema, no calf tenderness, normal capillary refill, pelvis stable Neurologic/Psychiatric: 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 II-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 nml as tested, no motor/sensory deficits, alert, normal mood/affect, oriented x 3 Skin: normal color, warm/dry, no rash Laboratory Results Last 24 Hours Test 09/05/17 05:32 09/05/17 09:45 White Blood Count 8.51 K/uL Red Blood Count 4.32 M/uL Hemoglobin 13.8 g/dL Hematocrit 38.1 % Mean Corpuscular Volume 88.2 fL Mean Corpuscular Hemoglobin 31.9 pg Mean Corpuscular Hemoglobin Concent 36.2 g/dl Platelet Count 168 K/uL Mean Platelet Volume 9.1 fL Neutrophils (%) (Auto) 84.9 % Lymphocytes (%) (Auto) 2.6 % Monocytes (%) (Auto) 12.1 % Eosinophils (%) (Auto) 0.0 % Basophils (%) (Auto) 0.2 % Neutrophils # (Auto) 7.22 K/uL Lymphocytes # (Auto) 0.22 K/uL Monocytes # (Auto) 1.03 K/uL Eosinophils # (Auto) 0.00 K/uL Basophils # (Auto) 0.02 K/uL RDW Standard Deviation 43.1 fL RDW Coefficient of Variation 13.4 % Immature Granulocyte % (Auto) 0.2 % Immature Granulocyte # (Auto) 0.02 K/uL Sodium Level 132 mmol/L Potassium Level 3.5 mmol/L Chloride Level 100 mmol/L Carbon Dioxide Level 23 mmol/L Anion Gap 9.0 mmol/L Blood Urea Nitrogen 37 mg/dl Creatinine 1.49 mg/dl Est Creatinine Clear Calc Drug Dose 39.2 ml/min Estimated GFR () 48.9 Estimated GFR (Non- 42.2 BUN/Creatinine Ratio 24.8 Random Glucose 119 mg/dl Calcium Level 8.0 mg/dl Magnesium Level 1.9 mg/dl Influenza Type A (RT-PCR) Neg for Influ A Influenza Type B (RT-PCR) Neg for Influ B Assessment and Plan Acute on chronic diastolic heart failure causing dyspnea resolved, diuresed 930 total, breathing better, less edema in legs hold on further Lasix Cr is 1.4, stable follow up echo results Left lower lobe pneumonia persistent fevers despite Levaquin, WBC still normal repeated flu testing, still negative will add Cefepime since he is having fevers fever on admission and subtle finding on CXR will check a Lyme titer since he continues to have fevers, weakness Generalized weakness, ambulatory dysfunction improving, ask for PT/OT evaluation lives at [facility] ELVIS: resolved, Cr is 1.4 today BPH-- Continue finasteride and terazosin RLS-- Continue pramipexole Arthritis-- Continue Plaquenil
[2017-09-05] MEDS ORDERED: CEFEPIME IV 1,000 MG in DEXTROSE 5% 100ML 100 ML IV SCH (14:00)
[2017-09-05] MEDS ORDERED: PERFLUTREN LIPID MICROSPHERE (DEFINITY) IV ONE (14:43)
[2017-09-05] MEDS: CEFEPIME IV 1,000 MG in SYRINGE 0 ML IV SCH (14:50)
--- NOTE | 2017-09-05 16:36 | ECHOCARDIOGRAM REPORT ---
*NOTICE TO RECEIVING [employer] This information is strictly Confidential and protected under [place] law. [place] law prohibits you from making any further disclosure of this information unless further disclosure is expressly permitted by the written consent of the person to whom it pertains or is authorized by law. A general authorization for the release of medical or other information is not sufficient for this purpose. Hospital accepts no responsibility if the information is made available to any other person, INCLUDING THE PATIENT. Interpretation Summary * Name: IDANIA GUEVARA Study Date: 09/05/2017 02:18 PM BP: 145/101 mmHg * Patient Location: [facility]\S\N284\S\1 HR: 70 * : 1930 (M/d/yyyy) Gender: Male Height: 68 in * Age: 86 yrs Ethnicity: CA Weight: 179 lb * Ordering Physician: New Cooley * Referring Physician: Curtis Mar * Performed By: Radha Dee RDCS * * Reason For Study: CHF * BSA: 1.9 m2 * -- Conclusions -- * 1. Grossly normal left ventricular size with mildly reduced systolic function. EF 45-50%. Mild global hypokinesis. Cannot rule out regional wall motion abnormalities. No significant left ventricular hypertrophy visualized. Type 1 diastolic dysfunction. * 2. Trace aortic regurgitation. * 3. Valves were not well visualized. * 4. Poor image quality. * 5. Technically difficult study, somewhat enhanced with IV Definity. * 6. Compared to prior study on 01/19/2015, current study has poor image quality. LV systolic function now appears to be mildly reduced. Procedure Details * A contrast injection of Definity was performed to improve assessment of LV function. * Contrast was injected into an intravenous site in the left arm. * One vial of Definity ultrasound contrast was diluted in normal saline to a total volume of 10 ml. A total of '2' ml of solution was administered during imaging. * Lot # [id number] of Definity utilized for procedure. * Expiration date AUG 03. * The attending nurse who injected the contrast agent was BURAK OLIVA RN. Left Ventricle * Grossly normal left ventricular size with mildly reduced systolic function. EF 45-50%. Mild global hypokinesis. Cannot rule out regional wall motion abnormalities. No significant left ventricular hypertrophy visualized. Type 1 diastolic dysfunction. Right Ventricle * The right ventricle is not well visualized. * The right ventricle is grossly normal size. Atria * The left atrial size is normal. * Right atrial size is normal. Mitral Valve * The mitral valve is grossly normal. * There is no mitral valve stenosis. * There is trace mitral regurgitation. Tricuspid Valve * The tricuspid valve is not well visualized. * There is no tricuspid stenosis. * Significant tricuspid regurgitation is absent. Aortic Valve * The aortic valve is trileaflet. * No hemodynamically significant valvular aortic stenosis. * Trace aortic regurgitation. Pulmonic Valve * The pulmonic valve is not well visualized. Great Vessels * The aortic root is normal size. Pericardium/Pleural * There is no pericardial effusion. Great Vessels * Top normal IVC size with normal inspiratory collapse. MMode 2D Measurements and Calculations Ao root diam 4.0 cm Ao root area 12.6 cm\S\2 LA dimension 4.2 cm LA/Ao 1.0 LVOT diam 2.4 cm LVOT area 4.6 cm\S\2 LVAd ap4 43.5 cm\S\2 LVLd ap4 9.0 cm EDV(MOD-sp4) 173.4 ml EDV(sp4-el) 177.9 ml LVAs ap4 29.8 cm\S\2 LVLs ap4 8.5 cm ESV(MOD-sp4) 90.1 ml ESV(sp4-el) 88.6 ml EF(MOD-sp4) 48.1 % EF(sp4-el) 50.2 % LVAd ap2 36.4 cm\S\2 LVLd ap2 8.7 cm EDV(MOD-sp2) 127.9 ml EDV(sp2-el) 129.7 ml LVAs ap2 25.4 cm\S\2 LVLs ap2 7.8 cm ESV(MOD-sp2) 70.8 ml ESV(sp2-el) 71.1 ml EF(MOD-sp2) 44.6 % EF(sp2-el) 45.2 % LVLd %diff -11.65 % EDV(MOD-bp) 173.4 ml LVLs %diff -6.57 % ESV(MOD-bp) 75.9 ml EF(MOD-bp) 56.2 % SV(MOD-sp4) 83.3 ml SI(MOD-sp4) 42.7 ml/m\S\2 SV(MOD-sp2) 57.1 ml SI(MOD-sp2) 29.3 ml/m\S\2 SV(MOD-bp) 97.5 ml SI(MOD-bp) 50.0 ml/m\S\2 SV(sp4-el) 89.3 ml SI(sp4-el) 45.8 ml/m\S\2 SV(sp2-el) 58.6 ml SI(sp2-el) 30.0 ml/m\S\2 Doppler Measurements and Calculations MV E max eugenia 76.8 cm/sec MV A max eugenia 118.8 cm/sec MV E/A 0.65 MV dec time 0.27 sec Ao V2 max 145.8 cm/sec Ao max PG 8.5 mmHg Ao max PG (full) 5.1 mmHg DINESH(V,A) 2.9 cm\S\2 DINESH(V,D) 2.9 cm\S\2 LV V1 max PG 3.4 mmHg LV V1 max 92.6 cm/sec RAP systole 3.0 mmHg
[2017-09-05] MEDS ORDERED: LEVOFLOXACIN 750 MG TAB PO SCH (21:00)
[2017-09-05] MEDS ORDERED: LEVOFLOXACIN / D5W 750 MG in PREMIXED IN D5W 100 ML IV SCH (21:00)
[2017-09-06] VITALS (11 sets, daily range): BP systolic 101–159; BP diastolic 61–76; PULSE 58–95; TEMP 36.2–37.4; O2SAT 90–98
[2017-09-06] MEDS: IPRATROPIUM BROMIDE NEB SOLN 0.02% 2.5 ML VIAL INH SCH ×4 (01:50→19:58)
[2017-09-06] MEDS: LEVALBUTEROL 1.25MG/0.5ML NEB INH SCH ×4 (01:50→19:58)
[2017-09-06] MEDS: CEFEPIME IV 1,000 MG in SYRINGE 0 ML IV SCH ×2 (03:05→14:00)
[2017-09-06] MEDS: TRAMADOL HCL 50 MG TAB PO PRN ×2 (03:20→17:00)
[2017-09-06 05:49] LABS: BASO % 0.1 %; BASO ABS # 0.01 K/uL (0-0.2); EOS % 0.5 %; EOS ABS # 0.04 K/uL (0-0.5); HEMATOCRIT 37.9 % (42-52); HEMOGLOBIN 13.4 g/dL (14.0-18.0); IG# 0.02 K/uL (0.00-0.02); LYMPH % 4.3 %; LYMPH ABS # 0.34 K/uL (1.2-3.4); MEAN CELL VOLUME 88.3 fL (80-100); MEAN CORPUSCULAR HEMOGLOBIN 31.2 pg (25-34); MEAN CORPUSCULAR HGB CONC 35.4 g/dl (32-36); MEAN PLATELET VOLUME 9.4 fL (7.4-10.4); MONO % 14.5 %; MONO ABS # 1.14 K/uL (0.11-0.59); NEUT % 80.3 %; NEUT ABS # 6.31 K/uL (1.4-6.5); PLATELET COUNT 182 K/uL (130-400); RED CELL DISTRIBUTION WIDTH CV 13.5 % (11.5-14.5); RED CELL DISTRIBUTION WIDTH SD 43.7 fL (36.4-46.3); WHITE BLOOD COUNT 7.86 K/uL (4.8-10.8)
[2017-09-06 06:45] LABS: CREATININE 1.72 mg/dl (0.60-1.40); POTASSIUM 3.7 mmol/L (3.5-5.1)
[2017-09-06] MEDS: PRESERVISION AREDS~ORDER AWAITING ACTION SCH (08:00)
[2017-09-06] MEDS: HYDROXYCHLOROQUINE SULFATE 200 MG TAB PO SCH ×2 (09:18→16:59)
[2017-09-06] MEDS: GUAIFENESIN 600 MG TABCR PO SCH ×2 (09:18→20:48)
[2017-09-06] MEDS: PRAMIPEXOLE DIHYDROCHLORIDE 0.5 MG TAB PO SCH (09:18)
[2017-09-06] MEDS: ENOXAPARIN 40 MG/0.4 ML SYR SC SCH (09:19)
[2017-09-06] MEDS: PRENATAL VITAMIN TAB PO SCH (09:19)
[2017-09-06] MEDS: FINASTERIDE 5 MG TAB PO SCH (09:19)
[2017-09-06] MEDS: SPIRONOLACTONE 25 MG TAB PO SCH ×2 (09:19→16:59)
[2017-09-06] MEDS ORDERED: LVQ750 PO (15:23)
[2017-09-06] MEDS ORDERED: LEVA45AE INH (15:23)
--- NOTE | 2017-09-06 17:23 | CARDIOLOGY CONSULTATION ---
DATE OF CONSULTATION: 09/06/2017 TIME: 16:07 p.m. CONSULTING PHYSICIAN: Dr. Cooley. REASON FOR CONSULTATION: "Worsening EF." PRIMARY PRINT JOURNALIST: Dr. Tabares. HISTORY OF PRESENT ILLNESS: Mr. Lei is a pleasant 86-year-old gentleman with a history significant for BPH, hypertension, sleep apnea, orthostatic hypotension, right bundle branch block with left anterior fascicular block, and mildly reduced LV systolic function, who came to the [facility] Emergency Department with profound weakness. After talking on the phone, he was unable to get up out of a seated position secondary to weakness. He had also been noting shortness of breath and nonproductive cough as well as nausea and vomiting. He had not noticed any chest discomfort, syncope, near syncope, or palpitations. He has chronic lower extremity edema, but believes it has been stable for the past several years. He was admitted with concern for heart failure and also pneumonia. Throughout his hospitalization, he has been found to have been febrile with a maximum temperature of 39.5 degrees Celsius. He has been placed on antibiotics and feels much better from the weakness standpoint, but still has a nonproductive cough. He had an echocardiogram done while hospitalized, which demonstrated mildly reduced systolic function with an EF of 45%-50% and when he was informed of this, he wanted cardiology input. He had actually undergone a stress echo on 05/08/2017 in the outpatient setting, which was negative for ischemia at 74% maximum predicted heart rate, but also demonstrated mildly reduced systolic function with an EF of 45%-50% once again with mild global hypokinesis similar to inpatient echo. REVIEW OF SYSTEMS: As above and review of systems otherwise positive for left hip pain when in certain positions. Otherwise, review of systems is negative/unremarkable. PAST MEDICAL HISTORY: 1. Sleep apnea. 2. Orthostatic hypotension. 3. Back pain. 4. Vitamin D deficiency. 5. History of hypertension. 6. BPH. 7. Chronic lower extremity edema. 8. Right bundle branch block and left anterior fascicular block. 9. Mildly reduced systolic function. HOME MEDICATIONS: Include spironolactone 25 mg twice daily. Please see H&P for full list. INPATIENT MEDICATIONS: Include cefepime, Lovenox, levofloxacin and spironolactone 25 mg p.o. b.i.d. ALLERGIES: No known drug allergies. SOCIAL HISTORY: Denies tobacco or drug abuse. Occasional alcohol. Lives in an assisted living facility with his . They have 2 children. 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 They currently reside at [facility]. He is currently alone in his hospital room. FAMILY HISTORY: No known premature CAD. PHYSICAL EXAMINATION: VITAL SIGNS: Temperature 37.4 degrees, heart rate 76 beats per minute, respiratory rate 18, blood pressure 111/69 mmHg, and oxygen saturation is 92% on room air. I's and O's negative 430 mL yesterday. Weight is 83.3 kg. GENERAL: No acute distress. He is alert. HEENT: Anicteric sclerae. NECK: No appreciable JVD. No bruits. Normal carotid upstrokes bilaterally. CARDIAC EXAMINATION: PMI was nonpalpable. There was no ventricular heave. Regular, normal S1 and S2. There were no audible murmurs, rubs or gallops. LUNGS: Decreased breath sounds throughout, especially left base. Otherwise, clear. ABDOMEN: Soft, nontender, and nondistended. Normoactive bowel sounds. EXTREMITIES: 1+ right pedal edema. Trace left lower extremity edema. No cyanosis. 2+ radial pulses bilaterally. 2+ dorsalis pedis pulses bilaterally. PSYCHIATRIC: Affect appears appropriate. LABORATORY DATA: White blood cell count is 7.6, hemoglobin 13.4, and platelets 182. Sodium 132, potassium 3.7, BUN 43, creatinine 1.72 up from 1.49, and magnesium 2. Albumin 3.1. Echocardiogram on 09/05/2017 reviewed, demonstrating mildly reduced LV systolic function. EF 45%-50%. Mild global hypokinesis. Cannot rule out regional wall motion abnormalities given poor image quality. Type 1 diastolic dysfunction. Trace aortic regurgitation, but valves were not well seen. CT scan of the chest on 09/03/2017 reported cardiomegaly with findings concerning of CHF. Small left pleural effusion with possible superimposed infiltrate at the left base. Monitor strips were reviewed. Sinus rhythm. ECG this morning demonstrated sinus rhythm with first degree AV block. RBBB with LAFB. 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 His reported EF, however, is the same that was reported in April of 2017 as an outpatient. He was reassured that his LV systolic function does not appear to have significantly changed, but rather remains stable. He can continue to follow with Dr. Tabares, his primary cable driller. He has not had any angina. He appears to be intravascularly hypovolemic as his labs are azotemic after only a mild diuresis. He has not been diagnosed with heart failure as an outpatient and once again with mild diuresis, has become azotemic. No further inpatient evaluation recommended at this time. He can follow with Dr. Tabares for further evaluation, if appropriate. 2. Edema: Likely secondary to venous insufficiency or hypoalbuminemia. It is predominantly of his right lower extremity and despite some gentle diuresis, he has now become azotemic, suggesting intravascular hypovolemia. Support stockings may improve his edema. Can elevate legs when sitting. Low sodium diet. 3. Shortness of breath: His shortness of breath and cough were likely secondary to pneumonia. He was quite febrile at times throughout his hospital stay and this has improved with antibiotics. Once again with diuretics, he has become azotemic. 4. Disposition: Can continue to follow up with Dr. Tabares in the outpatient setting for his mild cardiomyopathy. Agree with discontinuation of diuretics. Monitor renal function. Would encourage oral intake of fluids to help improve his azotemic labs. The patient's care has been discussed with Dr. Cooley of the primary hospitalist service. Thank you for allowing me to participate in the care of Mr. Lei. Sincerely, LOR
--- NOTE | 2017-09-06 20:58 | Progress Note ---
Subjective Date of Service: Sep 06, 2017. Subjective Pt evaluation today including: conversation w/ patient, conversation w/ family , physical exam, lab review, review of studies, conversation w/ legal consultant, review of inpatient medication list Pain: no pain PO Intake: adequate Voiding: no voiding problems getting stronger, wants to go to [place] to continue to ambulate coughing less, no fever discussed case with Dr. Henderson, no change in cardiac regimen echo shows EF of 45-50% which is same as prior echo Cr up to 1.77, hold on further diuresis Problem List Medical Problems: (1) Ambulatory dysfunction Status: Acute (2) Fever Status: Acute (3) Generalized weakness Status: Acute (4) PNA (pneumonia) Status: Acute Review of Systems Constitutional: + weakness Respiratory: + cough Neurologic: + weakness All Other Systems: Reviewed and Negative Medications Current Inpatient Medications Medications (Trade) Dose Ordered Sig/Jeana Route Start Time Stop Time Status Last Admin Dose Admin Acetaminophen (Tylenol Tab) 650 mg Q4H PRN PO 09/04/17 00:15 10/04/17 00:14 09/05/17 18:00 650 MG Al Hydrox/Mg Hydrox/Simethicone (Maalox Max Susp) 15 ml Q4H PRN PO 09/04/17 00:15 10/04/17 00:14 Magnesium Hydroxide (Milk Of Magnesia Susp) 30 ml Q12H PRN PO 09/04/17 00:15 10/04/17 00:14 Nitroglycerin (Nitrostat Tab) 0.4 mg UD PRN SL 09/04/17 00:15 10/04/17 00:14 Polyethylene (Miralax Powder Packet) 17 gm DAILY PRN PO 09/04/17 00:15 10/04/17 00:14 Finasteride (Proscar Tab) 5 mg QAM PO 09/04/17 09:00 10/04/17 08:59 09/06/17 09:19 5 MG Hydroxychloroquine Sulfate (Plaquenil Tab) 200 mg BIDM PO 09/04/17 08:00 10/04/17 07:59 09/06/17 16:59 200 MG Prenat Multivit/ [place]/Iron/Folic Ac ( Vitamin Tab) 1 tab DAILY PO 09/04/17 09:00 10/04/17 08:59 09/06/17 09:19 1 TAB Pramipexole Dihydrochloride (miraPEX TAB) 0.5 mg DAILY PO 09/04/17 09:00 10/04/17 08:59 09/06/17 09:18 0.5 MG Spironolactone (Aldactone Tab) 25 mg BID17 PO 09/04/17 09:00 10/04/17 08:59 09/06/17 16:59 25 MG Terazosin HCl (Hytrin Cap) 10 mg QAM PO 09/04/17 09:00 10/04/17 08:59 09/06/17 09:19 10 MG Tramadol HCl (Ultram Tab) 50 mg Q6H PRN PO 09/04/17 00:15 10/04/17 00:14 09/06/17 17:00 50 MG Miscellaneous Information (Order Awaiting Action) 1 ea QS N/A 09/04/17 08:00 10/04/17 07:59 Guaifenesin (Mucinex Contr Rel Tab) 600 mg Q12 PO 09/04/17 09:00 10/04/17 08:59 09/06/17 20:48 600 MG Ondansetron HCl (Zofran Inj) 4 mg Q6H PRN IV 09/04/17 00:15 10/04/17 00:14 09/05/17 12:00 4 MG Ipratropium [place] (Atrovent 0.02% 0.5MG/2.5ML Neb) 0.5 mg Q6R INH 09/04/17 03:00 10/04/17 02:59 09/06/17 19:58 0.5 MG Levalbuterol (Xopenex 1.25MG/ 0.5ML Neb) 1.25 mg Q6R INH 09/04/17 03:00 10/04/17 02:59 09/06/17 19:58 1.25 MG Ipratropium [place] (Atrovent 0.02% 0.5MG/2.5ML Neb) 0.5 mg Q2H PRN INH 09/04/17 01:15 10/04/17 01:14 Levalbuterol (Xopenex 1.25MG/ 0.5ML Neb) 1.25 mg Q2H PRN INH 09/04/17 01:15 10/04/17 01:14 Levofloxacin (Consult) 1 ea UD PRN N/A 09/04/17 01:45 10/04/17 01:44 Menthol (Nice Kourtney) 1 kourtney PRN PRN KOURTNEY 09/04/17 19:00 10/04/17 18:59 09/05/17 23:40 1 KOURTNEY Levofloxacin (Levaquin Tab) 750 mg Q2D@2100 PO 09/06/17 21:00 09/09/17 21:01 09/06/17 20:48 750 MG Cefepime HCl 1000 mg/Syringe 11 ml @ 5.5 mls/min Q12H IV 09/05/17 14:00 09/12/17 13:59 09/06/17 14:00 5.5 MLS/MIN Enoxaparin Sodium (Lovenox Inj) 40 mg Q24H SC 09/06/17 09:00 10/06/17 08:59 09/06/17 09:19 40 MG Objective Vital Signs Date Time Temp Pulse Resp B/P (MAP) Pulse Ox O2 Delivery O2 Flow Rate FiO2 09/06/17 19:58 63 18 93 Room Air 09/06/17 16:00 Room Air 09/06/17 15:29 37.4 76 18 111/69 (83) 92 Room Air 09/06/17 14:23 69 18 90 Room Air 09/06/17 12:00 Room Air 09/06/17 11:21 36.8 72 18 101/67 (78) 93 Room Air 09/06/17 08:00 Room Air 09/06/17 07:59 95 16 93 Room Air 09/06/17 07:53 37.2 79 16 125/66 (85) 98 Room Air 09/06/17 04:02 Room Air 09/06/17 04:00 36.7 83 20 159/73 (101) 93 Room Air 09/06/17 01:50 81 16 95 Room Air 09/06/17 00:16 37.2 69 20 114/61 (78) 94 Room Air 09/06/17 00:01 Room Air Physical Exam General Appearance: WD/WN, no apparent distress Eyes: normal inspection, EOMI, sclerae normal ENT: normal ENT inspection, hearing grossly normal, pharynx normal Neck: supple, no adenopathy, no JVD, trachea midline Respiratory/Chest: chest non-tender, lungs clear, no respiratory distress, no accessory muscle use, + decreased breath sounds Cardiovascular: regular rate, rhythm, no edema, no gallop, no JVD, no murmur Abdomen: normal bowel sounds, non tender, soft, no organomegaly Extremities: normal range of motion, non-tender, normal inspection, no calf tenderness, pelvis stable, + pedal edema Neurologic/Psychiatric: 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 II-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 nml as tested, no motor/sensory deficits, alert, normal mood/affect, oriented x 3 Skin: normal color, warm/dry, no rash Laboratory Results Last 24 Hours Test 09/06/17 05:28 White Blood Count 7.86 K/uL Red Blood Count 4.29 M/uL Hemoglobin 13.4 g/dL Hematocrit 37.9 % Mean Corpuscular Volume 88.3 fL Mean Corpuscular Hemoglobin 31.2 pg Mean Corpuscular Hemoglobin Concent 35.4 g/dl Platelet Count 182 K/uL Mean Platelet Volume 9.4 fL Neutrophils (%) (Auto) 80.3 % Lymphocytes (%) (Auto) 4.3 % Monocytes (%) (Auto) 14.5 % Eosinophils (%) (Auto) 0.5 % Basophils (%) (Auto) 0.1 % Neutrophils # (Auto) 6.31 K/uL Lymphocytes # (Auto) 0.34 K/uL Monocytes # (Auto) 1.14 K/uL Eosinophils # (Auto) 0.04 K/uL Basophils # (Auto) 0.01 K/uL RDW Standard Deviation 43.7 fL RDW Coefficient of Variation 13.5 % Immature Granulocyte % (Auto) 0.3 % Immature Granulocyte # (Auto) 0.02 K/uL Sodium Level 132 mmol/L Potassium Level 3.7 mmol/L Chloride Level 99 mmol/L Carbon Dioxide Level 26 mmol/L Anion Gap 8.0 mmol/L Blood Urea Nitrogen 43 mg/dl Creatinine 1.72 mg/dl Est Creatinine Clear Calc Drug Dose 33.0 ml/min Estimated GFR () 41.1 Estimated GFR (Non- 35.5 BUN/Creatinine Ratio 24.8 Random Glucose 103 mg/dl Calcium Level 8.0 mg/dl Magnesium Level 2.0 mg/dl Assessment and Plan Acute on chronic diastolic and systolic heart failure causing dyspnea resolved, diuresed 930 total, breathing better, less edema in legs hold on further Lasix Cr is 1.7 now due to Lasix use, repeat tomorrow, if stable then discharge echo shows EF 45-50%, same as prior echo Left lower lobe pneumonia fevers resolved on Cefepime and Levaquin repeated flu testing, still negative Lyme screen negative Generalized weakness, ambulatory dysfunction improving, ask for PT/OT evaluation lives at [facility] to to SNF side for rehab tomorrow ELVIS: Cr trending up to 1.77 due to diuresis with Lasix BPH-- Continue finasteride and terazosin RLS-- Continue pramipexole Arthritis-- Continue Plaquenil plan to d/c tomorrow AM
[2017-09-06] MEDS ORDERED: LEVOFLOXACIN 750 MG TAB PO SCH (21:00)
[2017-09-07] MEDS: CEFEPIME IV 1,000 MG in SYRINGE 0 ML IV SCH (01:23)
[2017-09-07 01:45] VITALS: PULSE 63; O2SAT 96
[2017-09-07] MEDS: IPRATROPIUM BROMIDE NEB SOLN 0.02% 2.5 ML VIAL INH SCH ×2 (01:45→07:15)
[2017-09-07] MEDS: LEVALBUTEROL 1.25MG/0.5ML NEB INH SCH ×2 (01:45→07:15)
[2017-09-07 04:40] VITALS: BP 135/75; PULSE 69; TEMP 36.5; O2SAT 95
[2017-09-07 06:49] LABS: CREATININE 1.61 mg/dl (0.60-1.40)
[2017-09-07 07:16] VITALS: PULSE 67; O2SAT 94
[2017-09-07 07:24] VITALS: BP 148/74; PULSE 69; TEMP 36.2; O2SAT 95
[2017-09-07] MEDS: PRESERVISION AREDS~ORDER AWAITING ACTION SCH (08:00)
[2017-09-07] MEDS: SPIRONOLACTONE 25 MG TAB PO SCH (08:32)
[2017-09-07] MEDS: PRENATAL VITAMIN TAB PO SCH (08:32)
[2017-09-07] MEDS: FINASTERIDE 5 MG TAB PO SCH (08:32)
[2017-09-07] MEDS: GUAIFENESIN 600 MG TABCR PO SCH (08:32)
[2017-09-07] MEDS: PRAMIPEXOLE DIHYDROCHLORIDE 0.5 MG TAB PO SCH (08:32)
[2017-09-07] MEDS: ENOXAPARIN 40 MG/0.4 ML SYR SC SCH (08:33)
[2017-09-07] MEDS: HYDROXYCHLOROQUINE SULFATE 200 MG TAB PO SCH (08:33)
--- NOTE | 2017-09-07 11:12 | Discharge Instructions ---
Discharge Instructions Date of Service Sep 06, 2017. Admission Reason for Admission: Acute Chf Discharge Discharge Diagnosis / Problem: Left lower lobe pneumonia, acute systolic heart failure Discharge Goals Goal(s): Improve function, Improve disease control Activity Recommendations Activity Level: Assistance Required Therapies: Physical Therapy, Occupational Therapy Exercise/Sports Limitations: as tolerated Shower/Bathe: no limitations . Additional Information Patient informed of condition: Yes Advance Directives: Yes DNR: No Level of Care: Skilled Communicable Disease: No Prognosis: Improving Oxygen at (LPM): no [place] Catheter: No Instructions / Follow-Up Instructions / Follow-Up Medications: - LEVAQUIN: 750mg mg every two days, next dose due this evening, take for 3 more doses - LEVALBUTEROL: inhaler to use as needed for shortness of breath Pneumonia, bacterial vs viral flu was negative twice complete a course of Levaquin as prescribed to cover bacterial source can use inhaler as needed for shortness of breath Acute on chronic systolic heart failure mild edema in lungs, resolved with lasix IV echo shows heart is the same as prior study, EF 45-50% FOLLOW UP - physician at [facility] in one week Current Hospital Diet Patient's current hospital diet: AHA Diet (Heart Healthy) Discharge Diet Recommended Diet: AHA Diet (Heart Healthy) Pending Studies Studies pending at discharge: no Medical Emergencies . Who to Call and When: Medical Emergencies: If at any time you feel your situation is an emergency, please call 911 immediately. . Non-Emergent Contact Non-Emergency issues call your: Primary Care Provider Call Non-Emergent contact if: you have a fever, you have any medication questions . . "Provider Documentation" section prepared by [place]. . Core Measure Problem Core Measures: None [place] Drug Monitoring Program Search Results: no issues identified
[2017-09-07 11:23] VITALS: BP 128/60; PULSE 76; TEMP 36.5; O2SAT 95
[2017-09-07 12:00] VITALS: BP 128/60; PULSE 76; TEMP 36.5; O2SAT 95
--- NOTE | 2017-09-08 09:13 | Discharge Summary ---
Discharge Summary Date of Service Sep 07, 2017. Discharge Summary Admission Date: Sep 03, 2017 at 23:57 Discharge Date: Sep 06, 2017 Discharge Disposition: [facility] facility Principal Diagnosis: Pneumonia, viral vs bacterial Problems/Secondary Diagnoses: Acute on chronic systolic heart failure Immunizations: Have You Had Influenza Vaccine: Yes History of Tetanus Vaccine?: Unknown History of Pneumococcal: Yes Pneumococcal Date: Jul 19, 2011 History of Hepatitis B Vaccine: No Procedures: none Consultations: Cardiology Medication Reconciliation New Medications: Levalbuterol Tartrate (Levalbuterol Tartrate Hfa) 45 Mcg/Act Aer 2 PUFFS INH Q6 PRN for SOB/Wheezing, #1 INHALER 1 Refill Levofloxacin (Levofloxacin) 750 Mg Tab 750 MG PO Q2D@2100, #3 TAB 0 Refills Continued Medications: Finasteride (Proscar) 5 Mg Tab 5 MG PO QAM Hydroxychloroquine Sulfate (Plaquenil) 200 Mg Tab 200 MG PO BIDM, TAB Melatonin-Pyridoxine (Melatonin) 1 Tab Tab 3 MG PO HS Multiple Vitamins W/ Minerals (Preservision Areds) 1 Cap Cap 1 CAP PO BID Multivit/Min/Iron/Fol Ac/Pren ( Vitamin) Tab 1 TAB PO DAILY, TAB Pramipexole Dihydrochloride (Pramipexole Dihydrochlori) 0.5 Mg Tab 0.5 MG PO DAILY Terazosin Hcl (Hytrin) 10 Mg Cap 10 MG PO QAM Tramadol (Ultram) 50 Mg Tab 50 MG PO Q6H PRN for Pain Discontinued Medications: Spironolactone (Aldactone) 25 Mg Tab 25 MG PO BID Discharge Exam Patient feeling well, no fever, minimal cough, no dyspnea on exertion. Excited to be discharged. No questions. Review of Systems: Constitutional: + weakness, + fatigue, No fever, No chills, No sweats, No weight loss, No problem reported Eyes: No worsening of vision, No eye pain, No redness, No discharge, No diplopia, No problem reported ENT: No hearing loss, No unusual epistaxis, No nasal symptoms, No sore throat, No tinnitus, No dental problems, No trouble swallowing, No problem reported Respiratory: + cough, No sputum, No wheezing, No shortness of breath, No dyspnea on exertion, No dyspnea at rest, No hemoptysis, No problem reported Cardiovascular: No chest pain, No orthopnea, No PND, No edema, No claudication, No palpitations, No problem reported Abdomen: No pain, No nausea, No vomiting, No diarrhea, No constipation, No GI bleeding, No problem reported Musculoskeletal: No joint pain, No muscle pain, No swelling, No calf pain, No problem reported Genitourinary - Male: + urinary incontinence (occasional), No hematuria, No dysuria, No urinary frequency, No urinary urgency, No urinary hesitancy, No urinary retention Neurologic: + weakness, No memory loss, No paralysis, No numbness/tingling, No vertigo, No balance problems, No problem reported Psychiatric: No depression symptoms, No anhedonism, No anxiety, No insomnia , No substance abuse, No problem reported Hematologic / Lymphatic: No abnormal bleeding/bruising, No clotting problems , No swollen lymph nodes, No night sweats, No problem reported Integumentary: No rash, No itch, No new/changing skin lesions, No color change, No bleeding, No problem reported Physical Exam: General Appearance: WD/WN, no apparent distress Eyes: normal inspection, EOMI, sclerae normal ENT: normal ENT inspection, hearing grossly normal, pharynx normal Neck: supple, no adenopathy, no JVD, trachea midline Respiratory/Chest: chest non-tender, normal breath sounds, no respiratory distress, no accessory muscle use, + rhonchi (scattered, clear with cough) Cardiovascular: regular rate, rhythm, no edema, no gallop, no JVD, no murmur , normal peripheral pulses Abdomen / GI: normal bowel sounds, non tender, soft, no organomegaly Extremities: normal inspection, no calf tenderness, normal capillary refill , no pedal edema, normal range of motion, pelvis stable Neurologic/Psychiatric: 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, no motor/sensory deficits , alert, normal mood/affect, normal reflexes, oriented x 3 Skin: normal color, warm/dry, no rash Hospital Course Acute on chronic diastolic and systolic heart failure causing dyspnea resolved, diuresed 930 total, breathing better, less edema in legs hold on further Lasix Cr katlyn to 1.7 after diuresis, down to 1.6 on the day of discharge holding Aldactone on discharge but could resume in a few days echo shows EF 45-50%, same as prior echo Left lower lobe pneumonia, viral vs bacterial fevers resolved on Cefepime and Levaquin repeated flu testing, still negative Lyme screen negative will d/c on Levaquin for 2 more doses, 750mg q 2 days based on renal function Generalized weakness, ambulatory dysfunction improving, ask for PT/OT evaluation lives at [facility] can be d/c to SNF side for rehab patient and pleased with this plan ELVIS: Cr trending up to 1.77 due to diuresis with Lasix trended back down to 1.6 on day of discharge continue to hold Aldactone for a few days but should be safe to resume after that BPH-- Continue finasteride and terazosin RLS-- Continue pramipexole Arthritis-- Continue Plaquenil d/c to [facility] for rehab with plans to return to independent living once stronger Total Time Spent: Greater than 30 minutes This includes examination of the patient, discharge planning, medication reconciliation, and communication with other providers. Discharge Instructions Please refer to the electronic Patient Visit Report (Discharge Instructions) for additional information. Follow-Up physician at [facility] Additional Copies To Curtis Mar
== END 2017-09-07 12:53 | disposition home or self-care (01) | DRG 291 ==
LOC: EDBD 18:56 → C.EDB 18:57 → C.MED 23:57 → ENRESERV 09-04 00:17
PROVIDERS: ADMIT Hospitalist; ATTEND Internal Medicine
DX: I50.43 Acute on chronic combined systolic (congestive) and diastolic (congestive) heart failure (principal); J18.1 Lobar pneumonia, unspecified organism; N17.9 Acute kidney failure, unspecified; R53.1 Weakness; N40.0 Benign prostatic hyperplasia without lower urinary tract symptoms; G25.81 Restless legs syndrome; M19.90 Unspecified osteoarthritis, unspecified site; Z96.649 Presence of unspecified artificial hip joint; Z79.899 Other long term (current) drug therapy

== ENCOUNTER → 2017-09-10 | Outpatient (CLI) | payer BC, OTHER ==
[~2017-09-10] MED LIST changes: +HYDR200T5 PO; +LEVA45AE INH; +LVQ750 PO; +PRAM0.5T13 PO; +PRENTAB26 PO; -SPIR25TA PO; +TRAM-10 PO
== END | disposition home or self-care (01) ==
LOC: C.LABFOXDH 15:45
PROVIDERS: ATTEND Internal Medicine
DX: R32 Unspecified urinary incontinence (principal)

== ENCOUNTER → 2017-09-11 | Outpatient (CLI) | payer BC ==
[2017-09-11 09:27] LABS: BLOOD UREA NITROGEN 28 mg/dl (7-18); CALCIUM 8.4 mg/dl (8.5-10.1); CARBON DIOXIDE 26 mmol/L (21-32); CREATININE 1.25 mg/dl (0.60-1.40); GLUCOSE 88 mg/dl (70-99); POTASSIUM 4.1 mmol/L (3.5-5.1); SODIUM 137 mmol/L (136-145)
== END | disposition home or self-care (01) ==
LOC: C.LABFOXDH 08:43
PROVIDERS: ATTEND Internal Medicine
DX: R60.9 Edema, unspecified (principal)

== ENCOUNTER → 2017-09-17 | Outpatient (CLI) | payer BC ==
[2017-09-17 09:32] LABS: BLOOD UREA NITROGEN 16 mg/dl (7-18); CALCIUM 8.5 mg/dl (8.5-10.1); CARBON DIOXIDE 28 mmol/L (21-32); CREATININE 1.14 mg/dl (0.60-1.40); GLUCOSE 80 mg/dl (70-99); POTASSIUM 4.3 mmol/L (3.5-5.1); SODIUM 137 mmol/L (136-145)
== END | disposition home or self-care (01) ==
LOC: C.LABFOXDH 09:03
PROVIDERS: ATTEND Nurse Practitioner Family
DX: I10 Essential (primary) hypertension (principal)

== ENCOUNTER → 2017-09-24 | Outpatient (CLI) | payer BC | END | disposition home or self-care (01) | LOC: C.LABFOXMH 08:38 | PROVIDERS: ATTEND Internal Medicine | DX: N40.1 Benign prostatic hyperplasia with lower urinary tract symptoms (principal) ==

== ENCOUNTER → 2017-11-12 | Outpatient (CLI) | payer BC | END | disposition home or self-care (01) | LOC: C.LABFOXMH 07:44 | PROVIDERS: ATTEND Urology | DX: R97.20 Elevated prostate specific antigen [PSA] (principal); N40.1 Benign prostatic hyperplasia with lower urinary tract symptoms ==

== ENCOUNTER → 2017-12-04 | Outpatient (CLI) | payer BC ==
[2017-12-04 08:45] LABS: HEMATOCRIT 39.5 % (42-52); HEMOGLOBIN 13.5 g/dL (14.0-18.0); MEAN CELL VOLUME 93.8 fL (80-100); MEAN CORPUSCULAR HEMOGLOBIN 32.1 pg (25-34); MEAN CORPUSCULAR HGB CONC 34.2 g/dl (32-36); MEAN PLATELET VOLUME 10.1 fL (7.4-10.4); PLATELET COUNT 245 K/uL (130-400); RED CELL DISTRIBUTION WIDTH CV 14.3 % (11.5-14.5); RED CELL DISTRIBUTION WIDTH SD 49.2 fL (36.4-46.3); WHITE BLOOD COUNT 4.76 K/uL (4.8-10.8)
[2017-12-04 08:46] LABS: ALBUMIN 3.4 gm/dl (3.4-5.0); ALKALINE PHOSPHATASE 60 U/L (45-117); ALT/SGPT 22 U/L (12-78); AST/SGOT 16 U/L (15-37); BLOOD UREA NITROGEN 21 mg/dl (7-18); CALCIUM 8.3 mg/dl (8.5-10.1); CARBON DIOXIDE 24 mmol/L (21-32); GLUCOSE 80 mg/dl (70-99); POTASSIUM 4.4 mmol/L (3.5-5.1); SODIUM 138 mmol/L (136-145); TOTAL PROTEIN 6.6 gm/dl (6.4-8.2)
== END ==
LOC: C.LABFOXMH 08:16
PROVIDERS: ATTEND Internal Medicine
DX: R53.83 Other fatigue (principal)

== ENCOUNTER → 2018-02-28 | Outpatient (CLI) | payer BC ==
[~2018-02-28] MED LIST changes: +CELE1CAP30 PO; +CHOL20007 PO; +ESZO1TAB16 PO; +FLNIN/ NAE; +OFLO0.3D4 OT; +SPIR25TA6 PO; -TRAM-10 PO
[2018-02-28 11:07] LABS: HEMATOCRIT 41.4 % (42-52); HEMOGLOBIN 13.9 g/dL (14.0-18.0); MEAN CELL VOLUME 93.7 fL (80-100); MEAN CORPUSCULAR HEMOGLOBIN 31.4 pg (25-34); MEAN CORPUSCULAR HGB CONC 33.6 g/dl (32-36); MEAN PLATELET VOLUME 9.9 fL (7.4-10.4); PLATELET COUNT 280 K/uL (130-400); RED CELL DISTRIBUTION WIDTH CV 14.3 % (11.5-14.5); RED CELL DISTRIBUTION WIDTH SD 48.8 fL (36.4-46.3); WHITE BLOOD COUNT 4.97 K/uL (4.8-10.8)
[2018-02-28 11:18] LABS: BLOOD UREA NITROGEN 21 mg/dl (7-18); CALCIUM 8.3 mg/dl (8.5-10.1); CARBON DIOXIDE 26 mmol/L (21-32); CREATININE 0.99 mg/dl (0.60-1.40); GLUCOSE 88 mg/dl (70-99); POTASSIUM 4.3 mmol/L (3.5-5.1); SODIUM 139 mmol/L (136-145)
== END | disposition home or self-care (01) ==
LOC: C.LABFOXMH 11:01
PROVIDERS: ATTEND Internal Medicine
DX: R05 Cough (principal); I10 Essential (primary) hypertension

== ENCOUNTER → 2018-02-28 | Outpatient (CLI) | payer BC ==
--- NOTE | 2018-02-28 11:52 | DIAGNOSTIC IMAGING REPORT ---
CHEST 2 VIEWS ROUTINE CLINICAL HISTORY: DYSPENA,DULLNESS AT L BASE COMPARISON STUDY: 10/01/2017 FINDINGS: Small left effusion. Stable cardiomegaly. Stable tortuosity thoracic aorta. Lungs otherwise appear clear. IMPRESSION: Interval small left effusion. Stable cardiomegaly. The above report was generated using voice recognition software. It may contain grammatical, syntax or spelling errors. Electronically signed by: Paul Pinzon M.D. 02/28/2018 11:51 AM Dictated Date/Time: 02/28/2018 11:50 AM
== END | disposition home or self-care (01) ==
LOC: C.RAD 11:30
PROVIDERS: ATTEND Internal Medicine
DX: R06.00 Dyspnea, unspecified (principal); I51.7 Cardiomegaly

== ENCOUNTER → 2018-03-11 | Outpatient (CLI) | payer BC ==
--- NOTE | 2018-03-11 14:58 | ECHOCARDIOGRAM REPORT ---
*NOTICE TO RECEIVING LIBERTARIAN AGENCY This information is strictly Confidential and protected under [place] law. [place] law prohibits you from making any further disclosure of this information unless further disclosure is expressly permitted by the written consent of the person to whom it pertains or is authorized by law. A general authorization for the release of medical or other information is not sufficient for this purpose. Hospital accepts no responsibility if the information is made available to any other person, INCLUDING THE PATIENT. Interpretation Summary * Name: IDANIA GUEVARA Study Date: 03/11/2018 12:53 PM BP: 165/61 mmHg * Patient Location: [facility] HR: 67 * : 1930 (M/d/yyyy) Gender: Male Height: 68 in * Age: 87 yrs Ethnicity: CA Weight: 177 lb * Ordering Physician: Ar Jaeger * Referring Physician: Ar Jaeger * Performed By: Elaine Brown RCS * * Reason For Study: CHF * BSA: 1.9 m2 * -- Conclusions -- * The left ventricle is borderline dilated. * There is mild concentric left ventricular hypertrophy. * Left ventricular systolic function is moderately reduced. * Grade I diastolic dysfunction, (abnormal relaxation pattern). * The left atrium is mildly dilated. * Aortic valve sclerosis mild, without significant aortic valvular stenosis. * Mild aortic regurgitation. * There is mild mitral regurgitation. * Compared to an echocardiogram from 09/05/2017, the overall LV systolic function appears slightly worse. Procedure Details * A complete two-dimensional transthoracic echocardiogram was performed (2D, M-mode, Doppler and color flow Doppler). Left Ventricle * The left ventricle is borderline dilated. * There is mild concentric left ventricular hypertrophy. * Left ventricular systolic function is moderately reduced. * Ejection Fraction = 35-40%. * Grade I diastolic dysfunction, (abnormal relaxation pattern). * There is moderate global hypokinesis of the left ventricle. Right Ventricle * The right ventricle is grossly normal size. * The right ventricular systolic function is normal. Atria * The left atrium is mildly dilated. * Right atrial size is normal. Mitral Valve * The mitral valve is grossly normal. * There is mild mitral regurgitation. Tricuspid Valve * The tricuspid valve is not well visualized, but is grossly normal. * Significant tricuspid regurgitation is absent. Aortic Valve * Aortic valve sclerosis mild, without significant aortic valvular stenosis. * No hemodynamically significant valvular aortic stenosis. * Mild aortic regurgitation. Pulmonic Valve * The pulmonic valve is not well visualized. Pericardium/Pleural * There is no pericardial effusion. Great Vessels * Normal inferior vena cava diameter and respiratory variation suggests normal central venous pressure. MMode 2D Measurements and Calculations IVSd 1.9 cm IVSs 2.0 cm LVIDd 5.5 cm LVIDs 4.5 cm LVPWd 1.6 cm LVPWs 1.7 cm IVS/LVPW 1.2 FS 18.3 % EDV(Teich) 145.3 ml ESV(Teich) 90.7 ml EF(Teich) 37.6 % EDV(cubed) 163.3 ml ESV(cubed) 88.9 ml EF(cubed) 45.6 % % IVS thick 4.4 % % LVPW thick 4.7 % LV mass(C)d 470.8 grams LV mass(C)dI 242.6 grams/m\S\2 LV mass(C)s 377.8 grams LV mass(C)sI 194.7 grams/m\S\2 SV(Teich) 54.6 ml SI(Teich) 28.2 ml/m\S\2 SV(cubed) 74.4 ml SI(cubed) 38.3 ml/m\S\2 Ao root diam 3.5 cm Ao root area 9.9 cm\S\2 LA dimension 4.5 cm LA/Ao 1.3 LVOT diam 2.2 cm LVOT area 3.9 cm\S\2 LVAd ap4 36.6 cm\S\2 LVLd ap4 8.5 cm EDV(MOD-sp4) 129.6 ml EDV(sp4-el) 134.5 ml LVAs ap4 27.8 cm\S\2 LVLs ap4 7.8 cm ESV(MOD-sp4) 83.1 ml ESV(sp4-el) 84.8 ml EF(MOD-sp4) 35.9 % EF(sp4-el) 37.0 % LVAd ap2 31.5 cm\S\2 LVLd ap2 8.1 cm EDV(MOD-sp2) 105.4 ml EDV(sp2-el) 103.5 ml LVAs ap2 23.2 cm\S\2 LVLs ap2 7.6 cm ESV(MOD-sp2) 60.2 ml ESV(sp2-el) 60.5 ml EF(MOD-sp2) 42.9 % EF(sp2-el) 41.5 % LVLd %diff -4.06 % EDV(MOD-bp) 119.7 ml LVLs %diff -2.68 % ESV(MOD-bp) 71.9 ml EF(MOD-bp) 39.9 % SV(MOD-sp4) 46.5 ml SI(MOD-sp4) 24.0 ml/m\S\2 SV(MOD-sp2) 45.2 ml SI(MOD-sp2) 23.3 ml/m\S\2 SV(MOD-bp) 47.8 ml SI(MOD-bp) 24.6 ml/m\S\2 SV(sp4-el) 49.7 ml SI(sp4-el) 25.6 ml/m\S\2 SV(sp2-el) 43.0 ml SI(sp2-el) 22.1 ml/m\S\2 Doppler Measurements and Calculations MV E max eugenia 73.3 cm/sec MV A max eug[place] 116.5 cm/sec MV E/A 0.63 MV P1/2t max [place] 74.2 cm/sec MV P1/2t 82.3 msec MVA(P1/2t) 2.7 cm\S\2 MV dec slope 264.0 cm/sec\S\2 MV dec time 0.20 sec Ao V2 max 96.3 cm/sec Ao max PG 3.7 mmHg Ao max PG (full) 1.6 mmHg DINESH(V,A) 3.0 cm\S\2 DINESH(V,D) 3.0 cm\S\2 AI max [place] 285.7 cm/sec AI max PG 32.6 mmHg AI dec slope 84.6 cm/sec\S\2 AI P1/2t 988.7 msec LV V1 max PG 2.1 mmHg LV V1 max 73.0 cm/sec PA V2 max 79.4 cm/sec PA max PG 2.5 mmHg
== END | disposition home or self-care (01) ==
LOC: C.CPL 12:22
PROVIDERS: ATTEND Internal Medicine
DX: I50.9 Heart failure, unspecified (principal)

== ENCOUNTER 2019-06-17 14:27 | Inpatient (IN) ==
[2019-06-17] MEDS ORDERED: ASPIRIN CHEW 324 MG PO STA (14:37)
--- NOTE | 2019-06-17 15:18 | XRay Report ---
XR chest 1V portable CLINICAL HISTORY: Atypical chest pain COMPARISON STUDY: 05/29/2019 FINDINGS: The heart remains enlarged. There is radiographic evidence of mild congestive failure/fluid overload. There is a persistent left pleural effusion with associated left lower lung zone airspace opacities.[ IMPRESSION: 1. Cardiomegaly and radiographic evidence of congestive failure/fluid overload 2. Persistent left pleural effusion with left lower lung zone opacities. Electronically signed by: Bhanu Alexis M.D. 06/17/2019 3:17 PM
[2019-06-17 15:28] LABS: Basophils # (auto) 0.02 K/uL (0-0.2); Basophils % (auto) 0.3 %; Eosinophils # (auto) 0.27 K/uL (0-0.5); Eosinophils % (auto) 4.3 %; Hemoglobin 11.5 g/dL (14.0-18.0); Immature Granulocytes # (auto) 0.01 K/uL (0.00-0.02); Immature Granulocytes % (auto) 0.2 %; Lymphocytes # (auto) 0.61 K/uL (1.2-3.4); Lymphocytes % (auto) 9.8 %; Mean Corpuscular Hemoglobin 31.2 pg (25-34); Mean Corpuscular Hgb Conc 33.8 g/dL (32-36); Mean Corpuscular Volume 92.1 fL (80-100); Mean Platelet Volume 8.4 fL (7.4-10.4); Monocytes # (auto) 0.76 K/uL (0.11-0.59); Monocytes % (auto) 12.2 %; Neutrophils # (auto) 4.58 K/uL (1.4-6.5); Neutrophils % (auto) 73.2 %; Platelet Count 298 K/uL (130-400); RDW Coefficient of Variation 14.2 % (11.5-14.5); RDW Standard Deviation 48.1 fL (36.4-46.3); Red Blood Count 3.69 M/uL (4.7-6.1); White Blood Count 6.25 K/uL (4.8-10.8)
[2019-06-17 15:43] LABS: INR 1.2 (0.9-1.1); Partial Thromboplastin Ratio 1.1; Partial Thromboplastin Time 29.3 Seconds (21.0-31.0); Prothrombin Time 12.2 Seconds (9.0-12.0)
[2019-06-17 15:44] LABS: BUN Creatinine Ratio 23.5 (10-20); Blood Urea Nitrogen 31 mg/dl (7-18); Calcium 8.3 mg/dl (8.5-10.1); Carbon Dioxide 23 mmol/L (21-32); Chloride 106 mmol/L (98-107); Est GFR (African American) 56.9; Est GFR (Non-African American) 49.1; Glucose 125 mg/dl (70-99); Lipase 129 U/L (73-393); Magnesium 2.3 mg/dl (1.8-2.4); Potassium 4.3 mmol/L (3.5-5.1); Sodium 135 mmol/L (136-145)
[2019-06-17 15:54] LABS: NT Pro B Type Natriuretic Pept 3102 pg/ml (0-1800); Troponin I 0.226 ng/ml (0-0.045)
[2019-06-17] MEDS ORDERED: FUROSEMIDE 40 MG/4 ML VIAL IV STA (16:06)
--- NOTE | 2019-06-17 16:54 | Emergency Department Note ---
Entered by Yi Ashraf acting as a scribe for Richie Mcneill History of Present Illness General Chief complaint: Shortness of Breath/Dyspnea Stated complaint: sob Time Seen by Provider: 06/17/19 14:32 Source: patient and EMS History of Present Illness Onset (ago): hour(s) (this afternoon) Location: chest Pain Consistency: + now resolved and + other (episode) Quality: + other (shortness of breath) Relieved By: + other (oxygen (nasal cannula)) Exacerbated By: not by movement Associated symptoms: + denies other symptoms (chest pain, headaches, body aches) and + other (increased work of breathing (resolved), low blood pressure (resolved)) The patient is a 88 year old male that is presenting to the Emergency Room with complaints of an episode of shortness of breath that started this afternoon. The patient arrived via EMS, who provided some of the history. EMS states that the patient lives at [facility] and notes that he arrived to the nursing station there feeling short of breath. EMS reports that the nursing staff noted an increased work of breathing at around 36 breaths per minute. EMS notes that the patients blood pressure was found to be low around 80 systolic. EMS states that the patient has a history of CHF and has gained 7 lbs of fluid weight in the past week. EMS reports that the patients symptoms appeared to have resolved when they arrived with an O2 Sat of 95% on room air and a blood pressure of 116/60. EMS states that the nursing staff was also concerned about an episode of disorientation last night where the patient went for a walk outside and was unable to find his way back to his room, which is abnormal for the patient. The patient denies any shortness of breath currently. He denies any chest pain, headaches, or body aches. He notes that he was feeling short of breath earlier today, but states that this was resolved by O2 provided by [facility] nursing staff. He denies any unusual shortness of breath with exertion. He states that he is unable to lie flat on his back secondary to breathing issues due to his CHF. He reports that he uses a CPAP machine. The patient is able to name the president and his location on exam. He states that the year is 2018. The patients notes that the patient is followed by Dr. Carballo, Pulmonology. Home Medications Home Medications Medication Instructions Recorded Confirmed Type cholecalciferol (vitamin D3) 1,000 unit PO DAILY 04/26/18 06/17/19 History [Vitamin D3] furosemide 20 mg PO DAILY 04/26/18 06/17/19 History pramipexole 0.5 mg PO DAILY 04/26/18 06/17/19 History spironolactone 25 mg PO BID 04/26/18 06/17/19 History carvedilol 3.125 mg tablet 3.125 mg PO BID #180 tab 02/27/19 06/17/19 History trazodone 50 mg tablet 50 mg PO HS tab 05/12/19 06/17/19 History losartan 25 mg tablet 25 mg PO DAILY 06/09/19 06/17/19 History aspirin [Aspir-81] 81 mg PO DAILY 06/17/19 06/17/19 History azelastine 2 spray INTRANASAL BID 06/17/19 06/17/19 History Allergies Allergy/AdvReac Type Severity Reaction Status Date / Time sacubitril [From Entresto] AdvReac Severe LOWERED Verified 06/17/19 15:53 B/P-DANGEROUSLY, COUGH, VOMITING valsartan [From Entresto] AdvReac Severe LOWERED Verified 06/17/19 15:53 B/P-DANGEROUSLY, COUGH, VOMITING Past Med/Surg History Medical History Acute CHF (Acute) Diverticulitis Surgical History History of bowel resection History of hip replacement Hx of cataract surgery Hx of tonsillectomy Family History Mother Glaucoma Peptic ulcer Other Medical history non-contributory Social History Preferred Language: Welsh Communication Ability: Effective Visual Impairment: No Limitations Autocad Detailer Required: No Beliefs That Will Affect Care: None Current Living Situation: Spouse Feels Safe at Home: Yes Smoking Status: Unknown if ever smoked Hx Alcohol Use: Yes Hx Substance Use: No Review of Systems See HPI for pertinent positives & negatives. and A total of 10 systems reviewed and were otherwise negative Physical Exam Vital Signs Vital Signs - 24 hr 06/17/19 14:35 06/17/19 14:37 06/17/19 14:39 Temperature 36.7 C Temperature Source Oral Pulse Rate 67 62 64 Pulse Rate from SpO2 Sensor 62 62 Respiratory Rate 17 25 H 22 Blood Pressure 111/60 111/60 Blood Pressure Mean 67 77 Pulse Oximetry 95 94 95 Oxygen Delivery Method Room Air Sepsis Recent Fever Within 48 Hours No Sepsis New/Unexplained Change in Mental Status No Sepsis Action Taken by Nursing No Action Required 06/17/19 14:40 06/17/19 14:46 06/17/19 14:50 Temperature Temperature Source Pulse Rate 60 60 Pulse Rate from SpO2 Sensor 60 60 Respiratory Rate 26 H 28 H Blood Pressure Blood Pressure Mean Pulse Oximetry 95 95 95 Oxygen Delivery Method Room Air Sepsis Recent Fever Within 48 Hours Sepsis New/Unexplained Change in Mental Status Sepsis Action Taken by Nursing 06/17/19 15:00 06/17/19 15:10 06/17/19 15:20 Temperature Temperature Source Pulse Rate 65 62 61 Pulse Rate from SpO2 Sensor 62 Respiratory Rate 36 H 25 H 31 H Blood Pressure 116/57 L Blood Pressure Mean 76 Pulse Oximetry 95 Oxygen Delivery Method Sepsis Recent Fever Within 48 Hours Sepsis New/Unexplained Change in Mental Status Sepsis Action Taken by Nursing 06/17/19 15:30 06/17/19 15:40 06/17/19 15:50 Temperature Temperature Source Pulse Rate 60 60 60 Pulse Rate from SpO2 Sensor 60 60 60 Respiratory Rate 27 H 19 30 H Blood Pressure 118/58 L Blood Pressure Mean 80 Pulse Oximetry 95 95 95 Oxygen Delivery Method Sepsis Recent Fever Within 48 Hours Sepsis New/Unexplained Change in Mental Status Sepsis Action Taken by Nursing 06/17/19 16:00 06/17/19 16:10 06/17/19 16:20 Temperature Temperature Source Pulse Rate 59 L 60 60 Pulse Rate from SpO2 Sensor 59 L 60 60 Respiratory Rate 19 18 26 H Blood Pressure 125/61 Blood Pressure Mean 86 Pulse Oximetry 96 95 97 Oxygen Delivery Method Sepsis Recent Fever Within 48 Hours Sepsis New/Unexplained Change in Mental Status Sepsis Action Taken by Nursing 06/17/19 16:30 Temperature Temperature Source Pulse Rate 60 Pulse Rate from SpO2 Sensor 63 Respiratory Rate 21 Blood Pressure 133/65 Blood Pressure Mean 90 Pulse Oximetry 97 Oxygen Delivery Method Sepsis Recent Fever Within 48 Hours Sepsis New/Unexplained Change in Mental Status Sepsis Action Taken by Nursing Physical Exam GENERAL: He is oriented to person, place, and time. He appears well-developed an d well-nourished. He does not appear distressed. HENT: Exam performed. - Head: Normocephalic and atraumatic. - Right Ear: External ear normal. No mastoid tenderness. - Left Ear: External ear normal. No mastoid tenderness. - Mouth/Throat: The oropharynx is clear and moist. No trismus in the jaw. No d ental abscesses or uvula swelling. No oropharyngeal exudate or tonsillar abscesses. EYES: Conjunctivae and EOM are normal. Pupils are equal, round, and reactive to light. Right eye exhibits no discharge. Left eye exhibits no discharge. No scleral icterus. NECK: Normal range of motion. Neck supple. No JVD present. No spinous process tenderness present. No carotid bruit present. No rigidity. No tracheal deviation and normal range of motion present. No Brudzinski's sign and no Kernig's sign noted. CV: Normal rate, regular rhythm, normal heart sounds and intact distal pulses. There is no peripheral edema. Palpable radial pulses bue. PULM/CHEST: Effort normal and breath sounds normal. No respiratory distress. No stridor. He has no wheezes. He has rales bilaterally. - Chest Wall: He exhibits no tenderness. ABD: The abdomen is soft. Bowel sounds are normal. He has no distension. No mass is present. There is no tenderness. There is no rebound, no guarding, no Still's sign and no tenderness at McBurney's point. Rovsig negative MUSC/SKEL: Normal range of motion. There is no peripheral edema, tenderness or deformity. LYMPH: No cervical adenopathy. NEURO: He is alert and oriented to person, place, and time. He has normal strength. No cranial nerve deficit or sensory deficit. Coordination and gait normal. GCS eye subscore is 4. GCS verbal subscore is 5. GCS motor subscore is 6. cerbellar tests wnl. SKIN: Skin is warm and dry. He is not diaphoretic. PSYCH: He has a normal mood and affect. His behavior is normal. Judgment and thought content normal. Course Course 1434:The patient was evaluated in room B03B. A complete history and physical examination was performed. 1609: Vital signs stable. Labs show elevated troponin. Imaging shows cardiomegaly with cephalization. Patient will be given additional dosage of Lasix IV. Elevated troponin is likely secondary to his CHF exacerbation. I discussed the patients case with Josi Nicholson PA-C [facility], who will evaluate the patient for further management and care with Dr. Sosa as the attending physician. Administered Medications Discontinued Medications Aspirin (Aspirin) 324 mg PO NOW STA Stop: 06/17/19 14:38 Last Admin: 06/17/19 14:50 Dose: 324 mg Documented by: [id number] Furosemide (Lasix) 40 mg IV NOW STA Stop: 06/17/19 16:07 Last Admin: 06/17/19 16:33 Dose: 40 mg Documented by: [id number] Medical Decision Making Medical Records Attestation: I reviewed the patient's medical records. Home Medications Current Medication List: was personally reviewed by me Laboratory Data Attestation: I reviewed the patient's lab results. Result diagrams: 06/17/19 15:06 06/17/19 15:06 Lab Results 06/17/19 06/17/19 06/17/19 Range/Units 15:06 15:06 15:06 WBC 6.25 (4.8-10.8) K/uL RBC 3.69 L (4.7-6.1) M/uL Hgb 11.5 L (14.0-18.0) g/dL Hct 34.0 L (42-52) % MCV 92.1 (80-100) fL MCH 31.2 (25-34) pg MCHC 33.8 (32-36) g/dL RDW Std Deviation 48.1 H (36.4-46.3) fL RDW Coeff of Kamlesh 14.2 (11.5-14.5) % Plt Count 298 (130-400) K/uL MPV 8.4 (7.4-10.4) fL Immature Gran % (Auto) 0.2 % Neut % (Auto) 73.2 % Lymph % (Auto) 9.8 % [place] % (Auto) 12.2 % Eos % (Auto) 4.3 % Baso % (Auto) 0.3 % Immature Gran # (Auto) 0.01 (0.00-0.02) K/uL Neut # (Auto) 4.58 (1.4-6.5) K/uL Lymph # (Auto) 0.61 L (1.2-3.4) K/uL [place] # (Auto) 0.76 H (0.11-0.59) K/uL Eos # (Auto) 0.27 (0-0.5) K/uL Baso # (Auto) 0.02 (0-0.2) K/uL PT 12.2 H (9.0-12.0) Seconds INR 1.2 H (0.9-1.1) APTT 29.3 (21.0-31.0) Seconds PTT Ratio 1.1 Sodium 135 L (136-145) mmol/L Potassium 4.3 (3.5-5.1) mmol/L Chloride 106 (98-107) mmol/L Carbon Dioxide 23 (21-32) mmol/L Anion Gap 7.0 (3-11) BUN 31 H (7-18) mg/dl Creatinine 1.30 (0.6-1.4) mg/dl Est Cr Clr Drug Dosing Not Reportable Est GFR ( Amer) 56.9 Est GFR (Non-Af Amer) 49.1 BUN/Creatinine Ratio 23.5 H (10-20) Glucose 125 H (70-99) mg/dl Calcium 8.3 L (8.5-10.1) mg/dl Magnesium 2.3 (1.8-2.4) mg/dl Troponin I 0.226 H* (0-0.045) ng/ml NT-Pro-B Natriuret Pep 3102 H (0-1800) pg/ml Lipase 129 (73-393) U/L Imaging Data Radiologist's Impression: Radiology results as stated below per my review and the radiologist's interpretation: XR chest 1V portable CLINICAL HISTORY: Atypical chest pain COMPARISON STUDY: 05/29/2019 FINDINGS: The heart remains enlarged. There is radiographic evidence of mild congestive failure/fluid overload. There is a persistent left pleural effusion with associated left lower lung zone airspace opacities.[ IMPRESSION: 1. Cardiomegaly and radiographic evidence of congestive failure/fluid overload 2. Persistent left pleural effusion with left lower lung zone opacities. Electronically signed by: Bhanu Alexis M.D. 06/17/2019 3:17 PM ECG Data Attestation: I personally reviewed and interpreted this ECG as follows: Indication: + SOB/dyspnea Rate (beats per minute): 60 Rhythm: + other (paced) ECG Findings: + Other (AR 206, QRS 196, QTC 522 ); no PACs and no PVCs Blood Pressure Blood Pressure Findings: Normal blood pressure MDM Narrative Vital signs stable. Labs show elevated troponin. Imaging shows cardiomegaly with cephalization. Patient will be given additional dosage of Lasix IV. Elevated troponin is likely secondary to his CHF exacerbation. I discussed the patients case with Josi Nicholson PA-C [facility], who will evaluate the patient for further management and care with Dr. Sosa as the attending physician. Impression & Plan CHF exacerbation, Elevated troponin Discharge Plan Visit Data Chief Complaint: Shortness of Breath/Dyspnea Stated Complaint: sob ED Provider: Richie Mcneill Discharge Problem: CHF exacerbation, Elevated troponin Patient Disposition: Being Evaluated by Hospitalist Forms Stand Alone Forms: My [facility] Prescriptions Prescriptions: No Action losartan 25 mg tablet 25 mg PO DAILY RF: 0 carvedilol 3.125 mg tablet 3.125 mg PO BID Qty: 180 RF: 0 trazodone 50 mg tablet 50 mg PO HS RF: 0 aspirin [Aspir-81] 81 mg Tablet,Delayed Release (Dr/Ec) 81 mg PO DAILY RF: 0 azelastine 0.15 % (205.5 mcg) [place],Non-Aerosol 2 spray INTRANASAL BID RF: 0 spironolactone 25 mg tablet 25 mg PO BID RF: 0 pramipexole 0.5 mg tablet 0.5 mg PO DAILY RF: 0 furosemide 20 mg tablet 20 mg PO DAILY RF: 0 cholecalciferol (vitamin D3) [Vitamin D3] 1,000 unit Capsule 1,000 unit PO DAILY RF: 0 Referrals Referrals: Ar Jaeger MD [Primary Care Provider] - Discharge Problem: CHF exacerbation Qualifiers: Heart failure type: unspecified Qualified Code(s): I50.9 - Heart failure, unspecified The scribe's documentation has been prepared under my direction and personally reviewed by me in its entirety. I confirm that the note above accurately reflects all work, treatment, procedures, and medical decision making performed by me.
--- NOTE | 2019-06-17 17:23 | History & Physical Report ---
Date of Service June 17, 2019 Assessment & Plan (1) Acute on chronic combined systolic and diastolic congestive heart failure: Patient presenting with 1 week of progressive shortness of breath as well as a 7 pound weight gain over the last day. On physical exam he is visibly dyspneic with diminished breath sounds and diffuse rales as well as JVD. Laboratory work-up with elevated BNP 3102 (prior value 863), mildly elevated troponin at 0.226. Chest x-ray suggestive of CHF. Patient reports his dry weight to be in the 160s. His weight today is 81.5kg. Last weight in our system from 06/09/19 was 77.2kg. Last echocardiogram 09/05/2017grossly normal LV size with mildly reduced sys tolic function. EF of 45 to 50%. Mild global hypokinesis. Cannot rule out regional wall motion abnormalities. No significant LVH. Type I diastolic dysfunction. Trace AR. Admit to medical floor with telemetry monitoring Check LFTs x1 Repeat troponin in a.m. Lasix 40 mg IV twice daily. First dose administered in the ER -Monitor I's and O's, daily weights -BMP every 12 hours with electrolyte repletion as needed Low-sodium diet Continue carvedilol 3.125 mg p.o. twice daily Continue losartan 25 mg p.o. daily Continue Spironolactone 25 mg p.o. twice daily Consider repeat echocardiogram Present on Admission?: Yes (2) Elevated troponin: Mildly elevated troponin = 0.226. Patient denies chest pain. No acute ischemic changes noted on EKG. Most likely secondary to demand ischemia in setting of acute exacerbation of CHF. Patient was given 324 mg of aspirin in the ER. Patient had a stress echo performed in 2017 which was negative for inducible ischemia. -Repeat troponin in a.m. EKG as needed with chest pain Continue aspirin 81 mg p.o. daily Continue carvedilol and losartan Present on Admission?: Yes (3) Hypertension: Blood pressure mildly elevated 162/70. Continue carvedilol 3.125 mg p.o. twice daily Continue losartan 25 mg p.o. daily Continue spironolactone 25 mg p.o. twice daily Continue to monitor Present on Admission?: Yes (4) Insomnia: Chronic. Stable. Continue trazodone 50 mg p.o. nightly Present on Admission?: Yes (5) Obstructive sleep apnea: Chronic. Stable. Patient reports compliance with home CPAP. Nocturnal CPAP Present on Admission?: Yes (6) Vitamin D deficiency: Chronic. Stable. Continue vitamin D FENdiuresis with Lasix 40 mg IV twice daily. BMP twice daily to monitor for electrolyte abnormalities. Low sodium diet as tolerated ProphylaxisLovenox 30 mg daily Codefull per discussion with patient Dispositionadmission to medical floor telemetry monitoring History of Present Illness Chief Complaint: Shortness of breath Primary Care Provider: Ar Jaeger MD Mr. Lei is an 88-year-old male with history of combined systolic/diastolic CHF, hypertension, sleep apnea presenting with shortness of breath. Patient reports intermittent episodes of increased shortness of breath over the last week as well as a 7 pound weight gain today. He took an extra dose of Lasix 20 mg p.o. today due to his weight gain. Patient reports comp liance with medications and adheres to a low-sodium diet. States he was very cautious with what he ate over the holidays. Known CHF. He follows with Dr. Tabares as well as Mindi Navarrete in the heart failure clinic. He was last seen on 06/09/2019 and was noted to be stable at that time. He also reports a brief episode of confusion yesterdayhe [facility] got [facility]. His reports that he was found in the middle of [facility]. Patient denies being confused at that time. No additional complaints at this time. Specifically, patient denies chest pain/ palpitations/dizziness/presyncope/syncope. Denies worsening edema/ascites/orthopnea/PND. Denies abdominal pain/nausea/vomiting/diarrhea/constipation. ER course: Aspirin 324 mg p.o., Lasix 40 mg IV Allergies Allergy/AdvReac Type Severity Reaction Status Date / Time sacubitril [From Entresto] AdvReac Severe LOWERED Verified 06/17/19 15:53 B/P-DANGEROUSLY, COUGH, VOMITING valsartan [From Entresto] AdvReac Severe LOWERED Verified 06/17/19 15:53 B/P-DANGEROUSLY, COUGH, VOMITING Home Medications Home Medications Medication Instructions Recorded Confirmed Type cholecalciferol (vitamin D3) 1,000 unit PO DAILY 04/26/18 06/17/19 History [Vitamin D3] furosemide 20 mg PO DAILY 04/26/18 06/17/19 History pramipexole 0.5 mg PO DAILY 04/26/18 06/17/19 History spironolactone 25 mg PO BID 04/26/18 06/17/19 History carvedilol 3.125 mg tablet 3.125 mg PO BID #180 tab 02/27/19 06/17/19 History trazodone 50 mg tablet 50 mg PO HS tab 05/12/19 06/17/19 History losartan 25 mg tablet 25 mg PO DAILY 06/09/19 06/17/19 History aspirin [Aspir-81] 81 mg PO DAILY 06/17/19 06/17/19 History azelastine 2 spray INTRANASAL BID 06/17/19 06/17/19 History Past Med/Surg History Medical History (Updated 06/17/19 @ 17:21 by Radha Sosa DO) Acute CHF (Acute) Diverticulitis Surgical History (Updated 06/17/19 @ 17:06 by Radha Sosa DO) History of bowel resection History of hip replacement History of permanent cardiac pacemaker placement Hx of cataract surgery Hx of tonsillectomy Family History Mother Glaucoma Peptic ulcer Other Medical history non-contributory Social History Preferred Language: Guamanian Communication Ability: Effective Visual Impairment: No Limitations Ship Officer Required: No Beliefs That Will Affect Care: Pentecostalism Pentecostalism Beliefs: Kazakh Yarsani Current Living Situation: Spouse Current Living Situation Comment: [facility] Other Information That Helps Us Care for You: No Feels Safe at Home: Yes Safety Concerns: Feels Safe At This Time Smoking Status: Never smoker Second Hand Exposure: No ; Hx Alcohol Use: Yes Alcohol type: wine Hx Substance Use: No Review of Systems Review of Systems: All systems reviewed & are unremarkable except as noted in HPI & below Physical Exam Physical Exam: General: patient resting comfortably, sitting upright in bed, NAD, non-toxic in appearance, AA&O x 4 Skin: warm, dry, intact, no rashes or lesions HEENT: NC/AT, PERRL, EOMI, anicteric sclera, conjunctiva without injection, external ear normal to inspection and nontender, nares patent, moist mucus membranes, dentition intact, no oropharyngeal lesions, neck supple, trachea midline, no LAD, no thyromegaly, +JVD to earlobes bilaterally with bed at 45 degrees Heart: +S1/S2, distant heart sounds, regular, no m/r/g Lungs: patient slightly tachypneic, equal air entry bilaterally, breath sounds diminished at left base, +diffuse rales bilaterally to mid-lung field, +JVD, +HJR Abd: +BS, soft, NT/ND, no masses/organomegaly/ascites Ext: warm, 2+ pulses in UE/LE bilaterally, no clubbing/cyanosis or edema Neuro: nonfocal, patient AA&O x 4, speech intact, no facial droop, moving all extremities on command with equal strength 5/5 Results & Data Vital Signs (Past 12 Hours) Vital Signs Temp Pulse Resp BP Pulse Ox 06/17/19 16:30 60 21 133/65 97 06/17/19 16:20 60 26 H 97 06/17/19 16:10 60 18 95 06/17/19 16:00 59 L 19 125/61 96 06/17/19 15:50 60 30 H 95 06/17/19 15:40 60 19 95 06/17/19 15:30 60 27 H 118/58 L 95 06/17/19 15:20 61 31 H 95 06/17/19 15:10 62 25 H 06/17/19 15:00 65 36 H 116/57 L 06/17/19 14:50 60 28 H 95 06/17/19 14:46 95 06/17/19 14:40 60 26 H 95 06/17/19 14:39 36.7 C 64 22 111/60 95 06/17/19 14:37 62 25 H 94 06/17/19 14:35 67 17 111/60 95 Laboratory Results Lab Results 06/17/19 06/17/19 06/17/19 Range/Units 15:06 15:06 15:06 WBC 6.25 (4.8-10.8) K/uL RBC 3.69 L (4.7-6.1) M/uL Hgb 11.5 L (14.0-18.0) g/dL Hct 34.0 L (42-52) % MCV 92.1 (80-100) fL MCH 31.2 (25-34) pg MCHC 33.8 (32-36) g/dL RDW Std Deviation 48.1 H (36.4-46.3) fL RDW Coeff of Kamlesh 14.2 (11.5-14.5) % Plt Count 298 (130-400) K/uL MPV 8.4 (7.4-10.4) fL Immature Gran % (Auto) 0.2 % Neut % (Auto) 73.2 % Lymph % (Auto) 9.8 % [place] % (Auto) 12.2 % Eos % (Auto) 4.3 % Baso % (Auto) 0.3 % Immature Gran # (Auto) 0.01 (0.00-0.02) K/uL Neut # (Auto) 4.58 (1.4-6.5) K/uL Lymph # (Auto) 0.61 L (1.2-3.4) K/uL [place] # (Auto) 0.76 H (0.11-0.59) K/uL Eos # (Auto) 0.27 (0-0.5) K/uL Baso # (Auto) 0.02 (0-0.2) K/uL PT 12.2 H (9.0-12.0) Seconds INR 1.2 H (0.9-1.1) APTT 29.3 (21.0-31.0) Seconds PTT Ratio 1.1 Sodium 135 L (136-145) mmol/L Potassium 4.3 (3.5-5.1) mmol/L Chloride 106 (98-107) mmol/L Carbon Dioxide 23 (21-32) mmol/L Anion Gap 7.0 (3-11) BUN 31 H (7-18) mg/dl Creatinine 1.30 (0.6-1.4) mg/dl Est Cr Clr Drug Dosing Not Reportable Est GFR ( Amer) 56.9 Est GFR (Non-Af Amer) 49.1 BUN/Creatinine Ratio 23.5 H (10-20) Glucose 125 H (70-99) mg/dl Calcium 8.3 L (8.5-10.1) mg/dl Magnesium 2.3 (1.8-2.4) mg/dl Troponin I 0.226 H* (0-0.045) ng/ml NT-Pro-B Natriuret Pep 3102 H (0-1800) pg/ml Lipase 129 (73-393) U/L Diagnostic Findings XR chest 1V portable CLINICAL HISTORY: Atypical chest pain COMPARISON STUDY: 05/29/2019 FINDINGS: The heart remains enlarged. There is radiographic evidence of mild congestive failure/fluid overload. There is a persistent left pleural effusion with associated left lower lung zone airspace opacities.[ IMPRESSION: 1. Cardiomegaly and radiographic evidence of congestive failure/fluid overload 2. Persistent left pleural effusion with left lower lung zone opacities. Electronically signed by: Bhanu Alexis M.D. 06/17/2019 3:17 PM Dictated: 06/17/19 1515 Transcribed: 06/17/19 1515 ECG Additional Comments: Study shows AV dual paced rhythm at 60 bpm Code Status & VTE Plan Code Status Full code VTE Prophylaxis Plan VTE Prophylaxis will be ordered: Yes PG Care Time/CCT Total # of Minutes Spent Total Time Spent with Patient: Total time spent is greater than 50% in coordination of care (as documented) at patient's floor/unit and/or counseling patient: (1) Hypertension Hypertension type: essential hypertension Qualified Code(s): I10 - Essential (primary) hypertension (2) Insomnia Insomnia type: unspecified Qualified Code(s): G47.00 - Insomnia, unspecified
[2019-06-17 18:41] LABS: Phosphorus 2.9 mg/dl (2.5-4.9)
[2019-06-17] MEDS ORDERED: TRAZODONE HCL 50 MG TAB PO SCH (21:00)
[2019-06-17] MEDS: carvediloL 3.125 MG TAB PO SCH (21:44)
[2019-06-17] MEDS: SPIRONOLACTONE 25 MG TAB PO SCH (21:44)
[2019-06-18 07:13] LABS: Basophils # (auto) 0.03 K/uL (0-0.2); Basophils % (auto) 0.6 %; Eosinophils # (auto) 0.36 K/uL (0-0.5); Eosinophils % (auto) 7.3 %; Hematocrit (blood only) 38.2 % (42-52); Hemoglobin 12.9 g/dL (14.0-18.0); Lymphocytes # (auto) 0.52 K/uL (1.2-3.4); Lymphocytes % (auto) 10.6 %; Mean Corpuscular Hemoglobin 30.9 pg (25-34); Mean Corpuscular Hgb Conc 33.8 g/dL (32-36); Mean Corpuscular Volume 91.4 fL (80-100); Mean Platelet Volume 8.3 fL (7.4-10.4); Monocytes # (auto) 0.72 K/uL (0.11-0.59); Monocytes % (auto) 14.7 %; Neutrophils # (auto) 3.27 K/uL (1.4-6.5); Neutrophils % (auto) 66.8 %; Platelet Count 308 K/uL (130-400); RDW Standard Deviation 47.3 fL (36.4-46.3); Red Blood Count 4.18 M/uL (4.7-6.1)
[2019-06-18 07:46] LABS: Alanine Aminotransferase 12 U/L (12-78); Albumin Level 2.9 gm/dl (3.4-5.0); Aspartate Aminotransferase 10 U/L (15-37); BUN Creatinine Ratio 19.3 (10-20); Bilirubin Direct 0.1 mg/dl (0-0.2); Blood Urea Nitrogen 24 mg/dl (7-18); Calcium 8.7 mg/dl (8.5-10.1); Carbon Dioxide 27 mmol/L (21-32); Chloride 105 mmol/L (98-107); Est GFR (African American) 60.8; Est GFR (Non-African American) 52.5; Glucose 94 mg/dl (70-99); Potassium 3.7 mmol/L (3.5-5.1); Sodium 137 mmol/L (136-145)
[2019-06-18 07:54] LABS: Alkaline Phosphatase 72 U/L (45-117); Bilirubin,Total 0.7 mg/dl (0.2-1); Total Protein 6.8 gm/dl (6.4-8.2); Troponin I 0.191 ng/ml (0-0.045)
[2019-06-18] MEDS: carvediloL 3.125 MG TAB PO SCH (07:57)
[2019-06-18] MEDS: SPIRONOLACTONE 25 MG TAB PO SCH (07:59)
[2019-06-18] MEDS ORDERED: ASPIRIN 81 MG ECTAB PO SCH (09:00)
[2019-06-18] MEDS ORDERED: FUROSEMIDE 40 MG in SYRINGE 0 ML IV SCH (09:00)
[2019-06-18] MEDS ORDERED: CHOLECALCIFEROL 1,000 UNITS TAB PO SCH (09:00)
[2019-06-18] MEDS ORDERED: LOSARTAN POTASSIUM 25 MG TAB PO SCH (09:00)
[2019-06-18] MEDS ORDERED: PRAMIPEXOLE DIHYDROCHLO 0.5 MG TAB PO SCH (09:00)
[2019-06-18] MEDS ORDERED: ENOXAPARIN INJ 30 MG/0.3 ML SYR SQ SCH (09:00)
[2019-06-18 11:24] VITALS: PULSE 67; TEMP 97.9; O2SAT 95
[2019-06-18] MEDS ORDERED: SALINE NASAL 225 SPRAYS, GENTAMICIN SULFATE 60 MG, BARCODE IDENTIFIER 0 EA PRN (12:41)
[2019-06-18] MEDS ORDERED: SODIUM CHLORIDE 0.65% NA SOLN 45 ML (OCEAN) PRN (13:44)
--- NOTE | 2019-06-18 14:21 | Discharge Summary ---
Date of Service June 18, 2019 Admission HPI Per Admitting Provider Mr. Lei is an 88-year-old male with history of combined systolic/diastolic CHF, hypertension, sleep apnea presenting with shortness of breath. Patient reports intermittent episodes of increased shortness of breath over the last week as well as a 7 pound weight gain today. He took an extra dose of Lasix 20 mg p.o. today due to his weight gain. Patient reports compliance with medications and adheres to a low-sodium diet. States he was very cautious with what he ate over the holidays. Known CHF. He follows with Dr. Tabares as well as Mindi Navarrete in the heart failure clinic. He was last seen on 06/09/2019 and was noted to be stable at that time. He also reports a brief episode of confusion yesterdayhe was walking around the [facility] when he got lost. His reports that he was found in the middle of [facility]. Patient denies being confused at that time. No additional complaints at this time. Specifically, patient denies chest pain/palpitations/dizziness/presyncope/syncope. Denies worsening edema/ascites/orthopnea/PND. Denies abdominal pain/nausea/vomiting/diarrhea/constipation. ER course: Aspirin 324 mg p.o., Lasix 40 mg IV Principal Diagnosis Acute on chronic combined systolic and diastolic congestive heart failure Discharge Exam Constitutional WD/WN, vitals as above Exam as performed by: Damian Huerta D.O. PGY-2 Eyes PERRL and EOM intact bilaterally ENMT external ear and nose normal, oropharynx normal Neck normal visual inspection and trachea midline Respiratory normal respiratory effort and able to speak in complete sentences; no respiratory distress, does not use accessory muscles and no cough mild left posterior base rales otherwise clear to auscultation with good airmovement Cardiovascular Rate/Rhythm: regular rate and regular rhythm Extremities: + pedal edema (trace pitting) Gastrointestinal (Abdomen) Inspection/Auscultation: normal bowel sounds; abdomen not distended Percussion/Palpation: abdomen soft; abdomen nontender, no guarding and abdomen not rigid Musculoskeletal Head/Neck/Chest: normocephalic and head atraumatic Skin no rashes, warm and dry Neurologic moves all extremities and awake Psychiatric A+Ox3, euthymic affect Discharge Data Allergies Allergy/AdvReac Type Severity Reaction Status Date / Time sacubitril [From Entresto] AdvReac Severe LOWERED Verified 06/17/19 15:53 B/P-DANGEROUSLY, COUGH, VOMITING valsartan [From Entresto] AdvReac Severe LOWERED Verified 06/17/19 15:53 B/P-DANGEROUSLY, COUGH, VOMITING Consultations 06/17/19 16:35 ED Decision to Admit Stat Hospital Course (1) CHF exacerbation: 88 yo M with history of combined systolic/diastolic CHF, hypertension, sleep apnea who presented with 1 week of progressive shortness of breath as well as a 7 pound weight gain over the last day per report from [facility]. Reportedly took an extra dose of his lasix, and is compliant with medications and dietary restrictions. Brief episode of confusion noted in HPI as well which has since resolved. In the ER he was given Aspirin 324 mg p.o., Lasix 40 mg IV. He was observed for diuresis. Labs remarkable for elevated BNP 3102 (prior value 863), mildly elevated troponin at 0.226. Chest x-ray suggestive of CHF. His dry weight acc to CHF clinic records actually appears to be 170 lbs. His weight on arrival was 179. HD 1 he was given an additional dose of 40mg IV lasix. His symptoms of breathlessness have resolved. Output of 2L fluid. Weight on day of discharge 78kg (171 lbs). Instructions discussed to take 40mg lasix tomorrow and then resume 20mg po lasix daily, with instructions (per CHF clinic guidelines) for additional doses when appropriate. Patient discharged home to [facility] in good condition. All questions answered. Total Time Total Time Spent Total Time Spent (In Minutes): 30 Discharge Plan Discharge Items Patient Disposition: Home - Self-Care Reason For Visit: CHF EXACERBATION Discharge Diagnosis: CHF EXACERBATION Condition on Discharge: Good Activity: Resume your previous activity Non-emergency contact: Primary Care Provider and Fine Grade Operator Call non-emergency contact if: you have any medication questions and your symptoms worsen Follow-up/Referrals: Mindi Navarrete PA-C [Physician Rn Telehealth] - 06/24/19 9:30 am (Please, follow up at [facility] Cardiology Office / CHF Clinic with Terri Navarrete PA-C on SundayJune 24 at 9:30 am. *The office is located in [address] [facility], next to this hospital. IF you need to change this appointment, call the office at [phone].) Ar Jageer MD [Primary Care Provider] - Diet: Heart Healthy Addtl Attending Provider Instructions: You were admitted due to congestive heart failure exacerbation - in other words, fluid got backed up in your lungs. This is due to heart failure. We treated you with a few extra doses of your water pill, given through your IV. It is important to take your medications as prescribed. Your dry weight is 170 lbs. Take 20 mg lasix in the morning tomorrow Jun 19 - then take 20 mg lasix in the afternoon Jun 19. Then continue Lasix 20 mg daily. - Take an extra 20 mg daily for weight gain, swelling, or dyspnea. - Continue Carvedilol and Losartan. - Continue low sodium diet, less than 2,000 mg of sodium daily. - Continue daily standing weights. - Please notify the CHF program of 2+ lb weight gain overnight or 5+ lb in 1 week. Pending Studies at Discharge: No Stand-Alone Forms: My [facility], Smoking Cessation Medications and DC Order Prescriptions: Continued losartan 25 mg tablet 25 mg PO DAILY RF: 0 carvedilol 3.125 mg tablet 3.125 mg PO BID Qty: 180 RF: 0 trazodone 50 mg tablet 50 mg PO HS RF: 0 aspirin [Aspir-81] 81 mg Tablet,Delayed Release (Dr/Ec) 81 mg PO DAILY RF: 0 azelastine 0.15 % (205.5 mcg) [place],Non-Aerosol 2 spray INTRANASAL BID RF: 0 spironolactone 25 mg tablet 25 mg PO BID RF: 0 pramipexole 0.5 mg tablet 0.5 mg PO DAILY RF: 0 furosemide 20 mg tablet 20 mg PO DAILY RF: 0 cholecalciferol (vitamin D3) [Vitamin D3] 1,000 unit Capsule 1,000 unit PO DAILY RF: 0 Discharge Orders: Discharge Order (Routine); Ordered 06/18/19 Ordered By: Ashtyn Feliz Admission Data Admit Date/Time: 06/17/19 16:55 Attending Provider: Gerry Crowley Admit Provider: Radha Sosa Primary Care Provider: Ar Jaeger Other Providers: Radha Sosa Other Interventions: Discharge Summary Assessment (RN) Last Done: 06/18/19 14:45 DC Date/Time DO NOT enter until pt leaves facility: 06/18/19 15:31 Supervising Physician Co-Signing Physician Notes Attending attestation Pt seen and examined in concert with Dr. Feliz. In agreement with the documented findings as noted in the resident documentation with any exceptions or additions as noted here. Sitting comfortably at bedside without complaint, feels that he is returned to his baseline respiration and function. On examination, S1/S2 nl RRR no MCG. CTAB. Abd NT/ND BS+ve. 1+ pitting edema of the b/l LE (baseline per pt) HFrEF w/ exacerbation - responded well to IV lasix and is now at dry weight without symptoms saturating well on room air. Agree w/ tapering lasix dose to 20+20 baseline in outpatient. Follow up with HF clinic. Else see resident documentation as noted. Resident Activity Tracking Resident Involvement: Resident Care Provided Care Provided: Adult Hospital Medicine
[2019-06-18 14:49] VITALS: BP 157/77
== END 2019-06-18 15:31 | disposition home or self-care (01) | DRG 292 ==
LOC: ED 14:27 → 2N 16:55 → SUATTDRO 16:55 → 2N 17:30